=== PATIENT | male | born 1950 | race Caucasian/White ===

== ENCOUNTER → 2016-10-20 | Outpatient (CLI) | payer OTHER | LOC: BHFA 13:00 | PROVIDERS: ATTEND Internal Medicine Cardiovascular Disease | DX: I48.1 Persistent atrial fibrillation (principal) ==

== ENCOUNTER → 2016-10-24 | Day surgery (SDC) | payer OTHER ==
[~2016-10-24] MED LIST: BENZOCAINE UNIT DOSE SPRAY HURRICAINE MM ONE; ETOMIDATE 20 MG/10 ML VIAL IVP ONE; MIDAZOLAM 2 MG/2 ML VIAL IVP ONE; NS 500 ML IV ONE; PROPOFOL 200 MG/20 ML VIAL IVP ONE; PROPOFOL 200 MG/20 ML VIAL ONE; fentaNYL 100 MCG/2 ML INJ IVP ONE
--- NOTE | 2016-10-24 13:50 | CPEKG ---
Heart Rate: 90 RR Interval: 667 QRSD Interval: 88 QT Interval: 392 QTC Interval: 480 QRS [place]: -57 T Wave [place]: 39 EKG Severity - ABNORMAL ECG - EKG Impression: ATRIAL FIBRILLATION, V-RATE 72-118 EKG Impression: CONSIDER INFERIOR INFARCT EKG Impression: BORDERLINE PROLONGED QT INTERVAL Electronically Signed By: Salvador Espinoza 24-Oct-2016 19:47:01
[2016-10-24 14:21] LABS: INR 1.32 (0.83-1.16); PROTIME(PATIENT) 16.4 SEC (12.0-15.0)
[2016-10-24 14:22] LABS: APTT 49.9 SEC (23.0-38.0)
[2016-10-24 14:48] LABS: ANION GAP 10 mEq/L (8-16); CARBON DIOXIDE 26 mEq/l (22-31); CHLORIDE 107 mEq/L (97-110); POTASSIUM 4.4 mEq/L (3.5-5.2); SODIUM 143 mEq/L (134-144)
[2016-10-24 14:49] LABS: CALCIUM 9.5 mg/dL (8.5-10.4); GLOMERULAR FILTRATION RATE > 60; GLUCOSE 82 mg/dL (70-100); MAGNESIUM 2.1 mg/dL (1.6-2.3)
--- NOTE | 2016-10-24 16:11 | CPEKG ---
Heart Rate: 85 RR Interval: 706 P-R Interval: 184 QRSD Interval: 88 QT Interval: 416 QTC Interval: 495 P [place]: 31 QRS [place]: -54 T Wave [place]: 51 EKG Severity - ABNORMAL ECG - EKG Impression: SINUS RHYTHM EKG Impression: ATRIAL PREMATURE COMPLEX EKG Impression: INFERIOR INFARCT, AGE INDETERMINATE EKG Impression: BORDERLINE PROLONGED QT INTERVAL EKG Impression: LEFT AXIS DEVIATION Electronically Signed By: Salvador Espinoza 24-Oct-2016 19:47:43
--- NOTE | 2016-10-25 12:13 | CPR ---
[f rep st] NONINVASIVE CARDIAC PROCEDURE REPORT PROCEDURE PERFORMED: Cardioversion. INDICATION: Atrial fibrillation, anticoagulation with Pradaxa, which was started 1 week ago. ANESTHESIOLOGIST: Dr. Tomás Brooks. DESCRIPTION OF PROCEDURE: Appropriate monitoring was established, and consents were obtained. The p atient was instructed not to stop taking Pradaxa until further instructions from ak. TANNER was done since the Pradaxa was started 1 week ago, and the patient had been in atrial fibrillatio n for 2 weeks prior to the initial visit with me. There was no left atrial, left atrial appendage, o r left ventricular thrombus. A single 100 joule biphasic synchronized DC shock was administered, whi ch converted him to normal sinus rhythm. There were no complications. The patient will be continued on Pradaxa and Rythmol. AV nay blocking agent would also be continued. /[id number]/MODL
--- NOTE | 2016-11-15 08:33 | ECHO ---
[id number] + + [address] : : [facility] [address] : : [phone] + + Transesophageal Echocardiographic Report + -----+ :Name: ALBERTO PAL Date: 10/24/2016 03:27 PM : : Hospital Admission Number: [id number] Location : [facility]: :: 1950 Gender: Male : :Age: 66 yrs Race: WH,White : :Reason For Study: Atrial Fibrillation : + -----+ Atria Injection of contrast documented no interatrial shunt. Mitral Valve Prolapse of the posterior mitral leaflet(s). There is moderate mitral regurgitation. Aortic Valve The aortic valve is trileaflet. There is no aortic insufficiency. Pulmonic Valve Trace pulmonic valvular regurgitation. Conclusion A 2D transesophageal echocardiogram with color flow Doppler was performed. Proceed with cardioversion. Prolapse of the posterior mitral leaflet(s). There is moderate mitral regurgitation. Trace pulmonic valvular regurgitation. Injection of contrast documented no interatrial shunt. Final Reading Physician: Que Reich MD electronically signed on 11/15/2016 08:31 AM Ordering Physician: Que Reich Performed By: Que Reich MD
== END | disposition home or self-care (01) ==
LOC: FCATH 13:13
PROVIDERS: ATTEND Internal Medicine Cardiovascular Disease
PROC: 5A2204Z Restoration of Cardiac Rhythm, Single (ICD-10-PCS; principal; 2016-10-24)
PROC: B246ZZ4 Ultrasonography of Right and Left Heart, Transesophageal (ICD-10-PCS; principal; 2016-10-24)
DX: I48.1 Persistent atrial fibrillation (principal); Z79.01 Long term (current) use of anticoagulants
CPT/HCPCS: J2704

== ENCOUNTER → 2016-11-17 | Outpatient (CLI) | payer OTHER | LOC: BHFA 13:30 | PROVIDERS: ATTEND Internal Medicine Cardiovascular Disease | DX: I48.91 Unspecified atrial fibrillation (principal) | CPT/HCPCS: 78452; 93017; A9500 ==

== ENCOUNTER → 2017-01-30 | Outpatient (CLI) | payer OTHER ==
[~2017-01-30] MED LIST changes: -BENZOCAINE UNIT DOSE SPRAY HURRICAINE MM ONE; -ETOMIDATE 20 MG/10 ML VIAL IVP ONE; +IOPAMIDOL (ISOVUE 370) 100 ML BTL IV ONE; -MIDAZOLAM 2 MG/2 ML VIAL IVP ONE; -NS 500 ML IV ONE; -PROPOFOL 200 MG/20 ML VIAL IVP ONE; -PROPOFOL 200 MG/20 ML VIAL ONE; -fentaNYL 100 MCG/2 ML INJ IVP ONE
[2017-01-30 13:37] LABS: CREATININE 0.9 mg/dL (0.7-1.3); GLOMERULAR FILTRATION RATE > 60
== END ==
LOC: FIMAGING 12:57
PROVIDERS: ATTEND Internal Medicine Cardiovascular Disease
DX: Z01.810 Encounter for preprocedural cardiovascular examination (principal); I48.91 Unspecified atrial fibrillation
CPT/HCPCS: 75572; Q9967

== ENCOUNTER 2017-01-31 07:01 | Observation (INO) | payer OTHER ==
[2017-01-31] MEDS ORDERED: MIDAZOLAM 2 MG/2 ML VIAL IVP ONE (07:06)
[2017-01-31] MEDS ORDERED: NS 1,000 ML IV ONE (07:06)
--- NOTE | 2017-01-31 07:22 | CPEKG ---
Heart Rate: 108 RR Interval: 556 QRSD Interval: 82 QT Interval: 380 QTC Interval: 510 QRS [place]: -66 T Wave [place]: 50 EKG Severity - ABNORMAL ECG - EKG Impression: ATRIAL FIBRILLATION Electronically Signed By: Que Reich 31-Jan-2017 13:16:06
[2017-01-31] MEDS ORDERED: HEPARIN 10,000 UNIT/10 ML MDV ONE ×2 (07:30)
[2017-01-31] MEDS ORDERED: LIDOCAINE 1% 30 ML SDV ONE (07:30)
[2017-01-31] MEDS ORDERED: BUPIVACAINE 0.5% 30 ML SDV ONE (07:30)
[2017-01-31 07:37] LABS: % IMMATURE GRANULYOCYTES 0.2 % (0.0-1.1); ABSOLUTE IMMATURE GRANULOCYTES 0.01 10^3/uL (0.00-0.10); ADD DIFF? NO; ADD MORPH? NO; ADD SCAN? NO; ATYPICAL LYMPHOCYTE FLAG 0 (0-99); FRAGMENT RBC FLAG 0 (0-99); HEMATOCRIT 48.8 % (40.0-51.0); HEMOGLOBIN 16.8 g/dL (13.7-17.5); LEFT SHIFT FLG 0 (0-99); LIPEMIA HEMOLYSIS FLAG 90 (0-99); MEAN CELL HEMOGLOBIN 32.1 pg (27.9-34.1); MEAN CELL HEMOGLOBIN CONCENTR. 34.4 g/dL (32.4-36.7); MEAN CELL VOLUME 93.3 fL (81.5-99.8); MEAN PLATELET VOLUME 11.6 fL (8.7-11.7); PLATELET CLUMPS FLAG 10 (0-99); PLATELET COUNT 251 10^3/uL (150-400); RED BLOOD CELL COUNT 5.23 10^6/uL (4.40-6.38); RED CELL DISTRIBUTION WIDTH 12.7 % (11.5-15.2)
[2017-01-31 07:54] LABS: INR 1.07 (0.83-1.16); PROTIME(PATIENT) 13.8 SEC (12.0-15.0)
[2017-01-31 07:55] LABS: APTT 29.5 SEC (23.0-38.0)
[2017-01-31 08:06] LABS: ANION GAP 9 mEq/L (8-16); CALCIUM 9.6 mg/dL (8.5-10.4); CARBON DIOXIDE 23 mEq/l (22-31); CHLORIDE 109 mEq/L (97-110); CREATININE 0.9 mg/dL (0.7-1.3); GLOMERULAR FILTRATION RATE > 60; GLUCOSE 98 mg/dL (70-100); POTASSIUM 4.1 mEq/L (3.5-5.2); SODIUM 141 mEq/L (134-144)
[2017-01-31] MEDS ORDERED: DEXAMETHASONE 4 MG/ML VIAL ONE (08:21)
[2017-01-31] MEDS ORDERED: ROCURONIUM 50 MG/5 ML VIAL ONE ×3 (08:21→11:46)
[2017-01-31] MEDS ORDERED: PROPOFOL 200 MG/20 ML VIAL ONE (08:22)
[2017-01-31] MEDS ORDERED: SEVOFLURANE 250 ML BOTTLE IH ONE (08:28)
[2017-01-31] MEDS ORDERED: DESFLURANE 240 ML BOTTLE IH ONE (08:28)
[2017-01-31] MEDS ORDERED: PHENYLEPHRINE 10 MG/ML SDV ONE (08:53)
[2017-01-31] MEDS ORDERED: HEPARIN/DEXTROSE 25,000 UNIT/500 ML BAG ONE (09:06)
[2017-01-31] MEDS ORDERED: IOPAMIDOL (ISOVUE-300) 100 ML BTL IV ONE (09:29)
[2017-01-31] MEDS ORDERED: ONDANSETRON 4 MG/2 ML VIAL ONE ×2 (11:51→12:48)
[2017-01-31] MEDS ORDERED: PROTAMINE SULFATE 50 MG/5 ML VIAL IVP ONE (11:53)
[2017-01-31] MEDS ORDERED: SUGAMMADEX SODIUM 200 MG/2 ML VIAL IVP ONE (12:06)
--- NOTE | 2017-01-31 13:27 | EPPROC ---
Electrophysiology Procedure Note: ELECTROPHYSIOLOGIC STUDY AND CATHETER MEDIATED ABLATION FOR EARLY PERSISTENT ATRIAL FIBRILLATION Procedures performed: 62135-61 EP evaluation with RA/RV/LA pace/record, with arrhythmia induction 30604-60 EP evaluation with RA/RV pace record, insert/reposition catheter, with arrhythmia induction 16050 Atrial fibrillation ablation 77922 3D mapping Intracardiac echocardiogram Transseptal puncture Fluoroscopy INDICATION: Early persistent atrial fibrillation Cryo balloon ablation at our institution in 2013 with elimination of symptoms but recent recurrence of atrial fibrillation that has failed medical therapy with Rythmol SR and diltiazem. PROCEDURE: The patient arrived in the Electrophysiology Laboratory in the fasting state. The right groin, left groin and right infraclavicular area were prepped and draped in the usual sterile fashion. Anesthesiologist administered general anesthesia Dr. Jesus Fuentes. All catheters were placed percutaneously using the Seldinger technique and advanced into position under fluoroscopic guidance. One #7 Nigerian deflectable octapolar electrode catheter was placed in the His-bundle position via the left femoral vein (2mm spacing, IVC electrode for unipolar recordings). This catheter was placed in the coronary sinus after transseptal puncture. One #8 Nigerian AcuNaV ultrasound catheter was placed in the left femoral vein and advanced into the right atrium. One #4 Nigerian sheath was inserted into the left femoral artery via percutaneous technique and used for continuous arterial blood pressure monitoring and intermittent ACT determination. Programmed stimulation was performed from the right atrium, left atrium (CS) and right ventricle. Intracardiac echo evaluation of the left atrium and pulmonary veins was performed. Baseline ACT was drawn and heparin bolus was administered and heparin drip was started prior to transseptal puncture. ACT was checked every 15 minutes and maintained in the range of 350-400 seconds. One SL1 sheath (8.5 Fr) was inserted into the right femoral vein and advanced into the right atrium. Transseptal puncture was performed under intracardiac ultrasound, fluoroscopic and hemodynamic guidance placing the sheath into the left atrium. Mcdermott RF needle (C0 curve) was used. The mean left atrial pressure was 18 mmHg. At baseline, the rhythm was atrial fibrillation. Cardioversion was performed. Conventional pulmonary vein angiography was done using SL1 sheaths. PV anatomy : Left common pulmonic vein, RSPV, and RIPV. A high-resolution electroanatomical map of the left atrium and pulmonary veins was obtained during atrial fibrillation. CT angiography of the pulmonary veins and left atrium obtained previously was used in the CARTO-MERGE system for guidance in placing the catheter. Intracardiac ultrasound was used to assist in placing the mapping catheter outside the antrum of the pulmonary veins. Pentaray catheter was placed into sheath and advanced into the left atrium. High-density electroanatomical map of the left atrium was constructed including bipolar voltage map. This showed some areas of conduction just inferior to the left common pulmonic vein and inferior to the right inferior pulmonic vein and at the rain of the right superior and right inferior pulmonic veins. One #8 Nigerian quadrapolar electrode catheter (1mm-5mm-2mm spacing) with saline irrigated 3.5mm tip electrode ([employer] Thermo-Cool catheter) and location sensor for the Walkbase 3D mapping system was inserted through the transseptal sheath and positioned outside the orifice of the left superior pulmonary vein. Ablation was performed in these locations. Repeat high- density electroanatomical mapping confirmed that these areas were scarred and all 4 pulmonary veins were confirmed to be isolated. An esophageal temperature probe (12 electrode, Circa) was placed by the anesthesiologist at the beginning of the procedure. Esophageal temperature was monitored continuously and RF ablation was interrupted if there was a temperature rise >0.5 C. The esophagus was closer to the left common pulmonic vein. Sheath was withdrawn into the right atrium. Halo catheter was placed along the cavotricuspid isthmus and the lateral right atrium. Originally intention was to place a cavotricuspid isthmus line empirically given that this was the patient's 2nd ablation. However due to technical difficulties with CARTO mapping system, we did not perform atrial flutter ablation. ICE imaging was consistent with pre ablation imaging; moreover it showed no pericardial effusion or LA/TONJA thrombus at the end of the procedure. The catheters were withdrawn. SL1 sheaths were changed to 9 Fr short sheaths. Protamine was given. The sheaths were removed and manual pressure was used for hemostasis. The patient was recovered from anesthesia. There were no complications. CONCLUSIONS: 1. Early persistent atrial fibrillation. 2. Successful pulmonary vein re-isolation procedure (left and right pulmonary vein antrum) 3. No apparent complications. Patient Problems: Problems Problem Status Onset Atrial fibrillation Acute
[2017-01-31] MEDS ORDERED: ACETAMINOPHEN 325 MG TAB PO PRN (20:39)
[2017-01-31] MEDS ORDERED: OXYCODONE/APAP 5/325 TAB PO PRN (20:39)
[2017-01-31] MEDS ORDERED: ONDANSETRON 4 MG/2 ML VIAL IVP PRN (20:39)
[2017-01-31] MEDS: ENOXAPARIN 80 MG/0.8 ML SYR SC SCH (21:00)
--- NOTE | 2017-01-31 21:47 | CPEKG ---
Heart Rate: 79 RR Interval: 759 P-R Interval: 180 QRSD Interval: 82 QT Interval: 408 QTC Interval: 468 P [place]: 42 QRS [place]: -58 T Wave [place]: 44 EKG Severity - ABNORMAL ECG - EKG Impression: SINUS RHYTHM Electronically Signed By: Que Reich 01-Feb-2017 07:17:40
[2017-01-31 22:04] LABS: ANION GAP 7 mEq/L (8-16); CALCIUM 8.6 mg/dL (8.5-10.4); CARBON DIOXIDE 25 mEq/l (22-31); CHLORIDE 107 mEq/L (97-110); CREATININE 0.8 mg/dL (0.7-1.3); GLOMERULAR FILTRATION RATE > 60; GLUCOSE 100 mg/dL (70-100); MAGNESIUM 1.7 mg/dL (1.6-2.3); POTASSIUM 4.2 mEq/L (3.5-5.2); SODIUM 139 mEq/L (134-144)
[2017-02-01 05:21] VITALS: TEMP 97.5
[2017-02-01 05:34] LABS: % IMMATURE GRANULYOCYTES 0.4 % (0.0-1.1); ABSOLUTE IMMATURE GRANULOCYTES 0.06 10^3/uL (0.00-0.10); ADD DIFF? NO; ADD MORPH? NO; ADD SCAN? NO; ATYPICAL LYMPHOCYTE FLAG 0 (0-99); FRAGMENT RBC FLAG 0 (0-99); HEMATOCRIT 40.6 % (40.0-51.0); HEMOGLOBIN 13.9 g/dL (13.7-17.5); LEFT SHIFT FLG 0 (0-99); LIPEMIA HEMOLYSIS FLAG 90 (0-99); MEAN CELL HEMOGLOBIN 31.9 pg (27.9-34.1); MEAN CELL HEMOGLOBIN CONCENTR. 34.2 g/dL (32.4-36.7); MEAN CELL VOLUME 93.1 fL (81.5-99.8); MEAN PLATELET VOLUME 11.7 fL (8.7-11.7); PLATELET CLUMPS FLAG 0 (0-99); PLATELET COUNT 215 10^3/uL (150-400); RED BLOOD CELL COUNT 4.36 10^6/uL (4.40-6.38); RED CELL DISTRIBUTION WIDTH 12.4 % (11.5-15.2)
[2017-02-01 05:58] LABS: ANION GAP 8 mEq/L (8-16); CALCIUM 8.8 mg/dL (8.5-10.4); CARBON DIOXIDE 25 mEq/l (22-31); CHLORIDE 107 mEq/L (97-110); CREATININE 0.8 mg/dL (0.7-1.3); GLOMERULAR FILTRATION RATE > 60; GLUCOSE 90 mg/dL (70-100); POTASSIUM 3.7 mEq/L (3.5-5.2); SODIUM 140 mEq/L (134-144)
[2017-02-01 06:06] LABS: CK-MB INTERPRETATION POSITIVE (NEGATIVE)
[2017-02-01 06:25] LABS: INR 1.3 (0.83-1.16); PROTIME(PATIENT) 16.2 SEC (12.0-15.0)
--- NOTE | 2017-02-01 08:48 | CPEKG ---
Heart Rate: 81 RR Interval: 741 P-R Interval: 164 QRSD Interval: 86 QT Interval: 404 QTC Interval: 469 P [place]: 62 QRS [place]: -65 T Wave [place]: 40 EKG Severity - ABNORMAL ECG - EKG Impression: SINUS RHYTHM Electronically Signed By: Que Reich 01-Feb-2017 11:54:34
[2017-02-01] MEDS ORDERED: PANTOPRAZOLE SODIUM 40 MG TAB PO SCH (09:00)
[2017-02-01] MEDS ORDERED: ATORVASTATIN CALCIUM 10 MG TAB PO SCH (09:00)
[2017-02-01] MEDS ORDERED: DILTIAZEM CD 180 MG CAP PO SCH (09:00)
[2017-02-01] MEDS ORDERED: AMIODARONE HCL 200 MG TAB PO SCH (09:00)
--- NOTE | 2017-02-01 09:36 | ECHO ---
[id number] + + [address] : : [facility] [address] : : [phone] + + Transesophageal Echocardiographic Report + + :Name: ALBERTO PAL Study Date: 01/31/2017 08:42 AM : : Hospital Admission Number: [id number] : :: 1950 Gender: Male : :Age: 66 yrs Race: WH,White : :Reason For Study: Eval LV Fx : :History: Pre EP : + + Left Ventricle Ejection Fraction = 55-60%. Right Ventricle The right ventricle is normal in size and function. Atria Injection of contrast documented no interatrial shunt. The interatrial septum is intact with no evidence for an atrial septal defect. No thrombus is detected in the left atrial appendage. No left atrial mass or thrombus visualized. A prominent eustachian valve is noted. Mitral Valve The mitral valve is normal in structure and function. There is no mitral valve stenosis. There is trace to mild mitral regurgitation. Tricuspid Valve There is trace tricuspid regurgitation. Right ventricular systolic pressure is normal. Aortic Valve The aortic valve is normal in structure and function. The aortic valve is trileaflet. The aortic valve opens well. There is no aortic stenosis. There is no aortic insufficiency. Pulmonic Valve The pulmonic valve is normal in structure and function. There is no pulmonic valvular regurgitation. Vessels The aortic root is normal size. Pericardium There is no pericardial effusion. Conclusion A 2D transesophageal echocardiogram with color flow Doppler was performed. Ejection Fraction = 55-60%. Injection of contrast documented no interatrial shunt. The interatrial septum is intact with no evidence for an atrial septal defect. No thrombus is detected in the left atrial appendage. No left atrial mass or thrombus visualized. A prominent eustachian valve is noted. There is trace to mild mitral regurgitation. There is trace tricuspid regurgitation. Right ventricular systolic pressure is normal. The aortic valve is normal in structure and function. The aortic valve is trileaflet. Final Reading Physician: Que Reich MD electronically signed on 02/01/2017 09:34 AM Ordering Physician: Que Reich Performed By: Que Reich MD
--- NOTE | 2017-02-01 09:38 | ECHO ---
[id number] [id number] + + [address] : : [place] [address] : : [phone] + + Adult Echocardiographic Report + + :Name: ALBERTO PAL Aline Date: 02/01/2017 08:01 AM : : Hospital Admission Number: [id number] : :: 1950 Gender: Male Height: 70 in : :Age: 66 yrs Race: WH,White Weight: 175 lb : : : : BSA: 2.0 meters2: + + MMode/2D Measurements \T\ Calculations IVSd: 0.95 cm LVIDd: 4.8 cm FS: 35.5 % Ao root diam: 3.3 cm LVPWd: 1.0 cm LVIDs: 3.1 cm EDV(Teich): 106.9 ml ACS: 1.6 cm ESV(Teich): 37.5 ml EF(Teich): 64.9 % LVOT diam: 2.1 cm LVOT area: 3.5 cm2 Normal Measurement Values: + + :LVIDd (3.5-5.7cm) IVSd (0.6-1.1cm) LVPWd (0.6-1.1cm) Aortic Root (2.0-3.7cm)Left Atrium (1.5-4.0cm): :LV Vol(d) (76-115ml) LV Vol(s) (29-48ml) Ejec Fraction (50-65%)PV Jason (0.6- 1.2m/s) TV Jason (0.4-1.0m/s) : :MV E Jason (0.8-1.0m/s)MV A Jason (0.3-1.0m/s)LVOT Jason (0.7-1.2m/s) Asc Ao Jason ( 0.9-1.8m/s) : + + Doppler Measurements \T\ Calculations MV E max jason: Ao mean P.3 mmHgLV V1 mean PG: SV(LVOT): 76.5 cm/sec Ao V2 mean: 1.1 mmHg 63.7 ml MV A max jason: 86.9 cm/sec LV V1 mean: 46.9 cm/sec Ao V2 VTI: 26.6 cm 45.4 cm/sec MV E/A: 1.6 LV V1 VTI: 18.4 cm HAYLEE(I,D): 2.4 cm2 PA V2 max: 86.9 cm/sec PA max P.0 mmHg Left Ventricle The left ventricle is normal in size and function. There is no thrombus. Ejection Fraction = 55%. Right Ventricle The right ventricle is normal in size and function. Mitral Valve The mitral valve is normal in structure and function. There is trace to mild mitral regurgitation. Tricuspid Valve Normal tricuspid valve. No tricuspid regurgitation. Aortic Valve Mild Aortic Valve Calcification. There is no aortic stenosis. Pulmonic Valve The pulmonic valve is not well visualized. Pericardium/Pleural There is no pericardial effusion. Conclusion The left ventricle is normal in size and function. Ejection Fraction = 55%. There is trace to mild mitral regurgitation. Final Reading Physician: Que Reich MD electronically signed on 02/01/2017 09:37 AM Ordering Physician: Que Reich
[2017-02-01 09:59] VITALS: BP 152/74; PULSE 82; RESP 20; O2SAT 95
[2017-02-01] MEDS ORDERED: APIXABAN 5 MG TAB PO SCH (10:00)
[2017-02-01] MEDS: ENOXAPARIN 80 MG/0.8 ML SYR SC SCH (10:55)
--- NOTE | 2017-02-01 21:50 | GDS ---
[f rep st] DISCHARGE SUMMARY ADMITTING DIAGNOSIS: 1. Paroxysmal atrial fibrillation. 2. History of nonischemic cardiomyopathy. 3. Severe central sleep apnea. DISCHARGE DIAGNOSES: 1. Paroxysmal atrial fibrillation, status post radiofrequency ablation. 2. History of nonischemic cardiomyopathy. 3. Severe sleep apnea. BRIEF HISTORY: This is a 66-year-old man with prior atrial fibrillation ablation in November 2013. He had experienced recent breakthroughs despite Rythmol therapy. Symptoms include shortness of breath, palpitations, decreased exercise tolerance. Previously his EF had decreased; currently, it is 55%. CT done on 01/30/2017 prior to ablation demonstrated mild cardiomyopathy, coronary calcification, and a 2.5 x 2 cm hypodense lesion in the right lobe of his liver , which has increased in size since last CT in 2013. Nuclear stress test 2016 was negative, and his EF was 51%. HOSPITAL COURSE: The patient underwent atrial fibrillation ablation using radiofrequency ablation with successful pulmonary reisolation procedure of the left and right pulmonary vein antra. Due to technical difficulties with the Carto mapping system, atrial flutter ablation was not done. This was to have been done empirically because it was the patient's second ablation, although no atrial flutter had been seen clinically. The patient was stable overnight. He did have a brief run of atrial tachycardia on telemetry. He has not had any chest pain, shortness of breath, pain in his legs, or neurological symptoms. PHYSICAL EXAMINATION: VITAL SIGNS: Blood pressure 127/74, pulse 76, respirations 16, temperature 36.4. GENERAL: He is alert and oriented in no distress. CARDIAC: Regular rate and rhythm without murmur, rub, or gallop. LUNGS: Clear to auscultation. EXTREMITIES: Groin site without bleeding, swelling, or bruising. +1 femoral artery pulses, +2 pedal pulses. No discoloration or edema in the extremities. DATA REVIEWED: EKG demonstrates sinus rhythm without ST elevation. Echocardiogram demonstrated ejection fraction of 55% without effusion. LABORATORY VALUES: Sodium 140, potassium 3.7, chloride 107, bicarb 25, BUN 19, creatinine 0.8, glucose 90. WBC 14.1, hemoglobin 4.36, hematocrit 13.9, platelets 215,000. CK 294, CK-MB fraction 22, CK-MB percent 7.5, troponin 4.410 ; all of these cardiac enzymes are elevated, which is to be expected post atrial fibrillation ablation. DISCHARGE MEDICATIONS: Please see discharge medication reconiliation . Of note , Rythmol and Cardizem were stopped, and amiodarone 200 mg daily was started. This will be continued for at least 1 month. DISCHARGE INSTRUCTIONS: The patient was given instructions with activity restrictions, no lifting over 10 pounds for 10 days. He is to get up and walk every half hour while he is awake for the next 6 weeks. 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 FOLLOWUP: He has a followup with Dr. Reich on February 15 at 3:45. /[id number]/MODL MTDD
== END 2017-02-01 10:44 | disposition home or self-care (01) ==
LOC: FCATH 07:01 → F2N 12:32
PROVIDERS: ADMIT Internal Medicine Cardiovascular Disease; ATTEND Internal Medicine Cardiovascular Disease
DX: I48.0 Paroxysmal atrial fibrillation (principal); G47.31 Primary central sleep apnea
CPT/HCPCS: 93005; 93306; 93312; 93613; 93656; 93662; C1731; C1732; C1759; C1893; J1100; J1644; J1650; J2250; J2370; J2405; J2704; J2720; Q9967

== ENCOUNTER → 2017-02-08 | Outpatient (CLI) | payer OTHER | LOC: BMCIMAGING 07:18 | PROVIDERS: ATTEND Internal Medicine | DX: K76.89 Other specified diseases of liver (principal); K82.4 Cholesterolosis of gallbladder ==

== ENCOUNTER → 2017-02-15 | Outpatient (CLI) | payer OTHER | LOC: BHFA 15:45 | PROVIDERS: ATTEND Internal Medicine Cardiovascular Disease | DX: I48.91 Unspecified atrial fibrillation (principal) ==

== ENCOUNTER → 2017-03-03 | Outpatient (CLI) | payer OTHER | LOC: BHFA 09:00 | PROVIDERS: ATTEND Internal Medicine Cardiovascular Disease | DX: I48.91 Unspecified atrial fibrillation (principal) ==

== ENCOUNTER → 2017-04-18 | Outpatient (CLI) | payer OTHER | LOC: BHFA 13:30 | PROVIDERS: ATTEND Internal Medicine Cardiovascular Disease | DX: I48.91 Unspecified atrial fibrillation (principal) ==

== ENCOUNTER 2017-04-21 09:26 | Day surgery (SDC) | payer OTHER ==
[2017-04-21] MEDS ORDERED: NS 500 ML IV ONE (09:30)
[2017-04-21] MEDS ORDERED: fentaNYL 100 MCG/2 ML INJ IVP ONE (09:30)
[2017-04-21] MEDS ORDERED: MIDAZOLAM 2 MG/2 ML VIAL IVP ONE (09:30)
[2017-04-21] MEDS ORDERED: PROPOFOL 200 MG/20 ML VIAL IVP ONE (09:30)
--- NOTE | 2017-04-21 09:42 | CPEKG ---
Heart Rate: 76 RR Interval: 789 QRSD Interval: 86 QT Interval: 404 QTC Interval: 455 QRS [place]: -54 T Wave [place]: 28 EKG Severity - ABNORMAL ECG - EKG Impression: ATRIAL FIBRILLATION, V-RATE 72-80 EKG Impression: INFERIOR INFARCT, AGE INDETERMINATE EKG Impression: ATRIAL FIB IS NEW IN COMPARISON TO PRIOR Electronically Signed By: Hang Renner 21-Apr-2017 14:08:28
[2017-04-21 10:10] LABS: INR 1.16 (0.83-1.16); PROTIME(PATIENT) 14.8 SEC (12.0-15.0)
[2017-04-21 10:11] LABS: APTT 33.6 SEC (23.0-38.0)
[2017-04-21 10:22] LABS: ANION GAP 11 mEq/L (8-16); CALCIUM 9.3 mg/dL (8.5-10.4); CARBON DIOXIDE 20 mEq/l (22-31); CHLORIDE 113 mEq/L (97-110); CREATININE 0.9 mg/dL (0.7-1.3); GLOMERULAR FILTRATION RATE > 60; GLUCOSE 87 mg/dL (70-100); MAGNESIUM 2.1 mg/dL (1.6-2.3); POTASSIUM 4.6 mEq/L (3.5-5.2); SODIUM 144 mEq/L (134-144)
--- NOTE | 2017-04-21 10:25 | CPEKG ---
Heart Rate: 75 RR Interval: 800 P-R Interval: 176 QRSD Interval: 90 QT Interval: 436 QTC Interval: 487 P [place]: -20 QRS [place]: -48 T Wave [place]: 23 EKG Severity - ABNORMAL ECG - EKG Impression: SINUS RHYTHM EKG Impression: VENTRICULAR PREMATURE COMPLEX EKG Impression: INFERIOR INFARCT, AGE INDETERMINATE EKG Impression: BORDERLINE PROLONGED QT INTERVAL EKG Impression: SINUS RHYTHM HAS REPLACED AFIB Electronically Signed By: Hang Renner 21-Apr-2017 14:09:03
--- NOTE | 2017-04-21 13:33 | PDTEE1 ---
TANNER Cardioversion Procedure Procedure: Electrical Cardioversion Indications: Atrial Fibrillation Anticoagulation: Eliquis Procedural Details: Pads were placed in anterior-posterior position. Synchronized cardioversion attempt #1: 200J Results: Normal sinus rhythm Conclusions: Successful Cardioversion Patient Problems: Problems Problem Status Onset Atrial fibrillation Acute
== END 2017-04-21 11:54 | disposition home or self-care (01) ==
LOC: FCATH 09:26
PROVIDERS: ATTEND Internal Medicine Interventional Cardiology
PROC: 5A2204Z Restoration of Cardiac Rhythm, Single (ICD-10-PCS; principal; 2017-04-21)
DX: I48.91 Unspecified atrial fibrillation (principal); I25.10 Atherosclerotic heart disease of native coronary artery without angina pectoris; G47.33 Obstructive sleep apnea (adult) (pediatric); Z79.01 Long term (current) use of anticoagulants
CPT/HCPCS: J2704

== ENCOUNTER → 2017-05-05 | Outpatient (CLI) | payer OTHER | LOC: BHFA 09:00 | PROVIDERS: ATTEND Internal Medicine Cardiovascular Disease | DX: I48.91 Unspecified atrial fibrillation (principal) ==

== ENCOUNTER → 2017-05-18 | Outpatient (CLI) | payer OTHER | LOC: BHFA 09:30 | PROVIDERS: ATTEND Internal Medicine Cardiovascular Disease | DX: I48.91 Unspecified atrial fibrillation (principal) ==

== ENCOUNTER 2017-05-24 10:28 | Day surgery (SDC) | payer OTHER ==
[2017-05-24] MEDS ORDERED: PROPOFOL 200 MG/20 ML VIAL IVP ONE (10:33)
[2017-05-24] MEDS ORDERED: MIDAZOLAM 2 MG/2 ML VIAL IVP ONE (10:33)
[2017-05-24] MEDS ORDERED: BENZOCAINE UNIT DOSE SPRAY HURRICAINE MM ONE (10:33)
[2017-05-24] MEDS ORDERED: NS 500 ML IV ONE (10:33)
[2017-05-24] MEDS ORDERED: fentaNYL 100 MCG/2 ML INJ IVP ONE (10:33)
--- NOTE | 2017-05-24 10:45 | CPEKG ---
Heart Rate: 90 RR Interval: 667 P-R Interval: 232 QRSD Interval: 88 QT Interval: 344 QTC Interval: 421 P [place]: 66 QRS [place]: -50 T Wave [place]: 187 EKG Severity - ABNORMAL ECG - EKG Impression: Coarse atrial fibrillation vs left AT EKG Impression: LEFT AXIS DEVIATION EKG Impression: BORDERLINE INFERIOR Q WAVES Electronically Signed By: Que Reich 24-May-2017 10:59:39
[2017-05-24 11:06] LABS: INR 1.42 (0.83-1.16); PROTIME(PATIENT) 17.3 SEC (12.0-15.0)
[2017-05-24 11:07] LABS: APTT 36.8 SEC (23.0-38.0)
[2017-05-24 11:15] LABS: ANION GAP 11 mEq/L (8-16); CALCIUM 9.3 mg/dL (8.5-10.4); CARBON DIOXIDE 22 mEq/l (22-31); CHLORIDE 110 mEq/L (97-110); GLOMERULAR FILTRATION RATE > 60; GLUCOSE 91 mg/dL (70-100); POTASSIUM 4.2 mEq/L (3.5-5.2); SODIUM 143 mEq/L (134-144)
[2017-05-24] MEDS ORDERED: LIDOCAINE 1% 5 ML SDV ONE (11:54)
--- NOTE | 2017-05-24 12:19 | CPEKG ---
Heart Rate: 71 RR Interval: 845 P-R Interval: 196 QRSD Interval: 98 QT Interval: 444 QTC Interval: 483 P [place]: 42 QRS [place]: -51 T Wave [place]: 48 EKG Severity - ABNORMAL ECG - EKG Impression: SINUS RHYTHM EKG Impression: MULTIPLE ATRIAL PREMATURE COMPLEXES EKG Impression: INFERIOR INFARCT, AGE INDETERMINATE EKG Impression: BORDERLINE PROLONGED QT INTERVAL EKG Impression: Compared to an EKG earlier today the patient is no longer in a left atrial EKG Impression: tachycardia. Electronically Signed By: Salvador Espinoza 24-May-2017 15:18:07
--- NOTE | 2017-05-24 14:12 | CPIP ---
[f rep st] INVASIVE CARDIAC PROCEDURE PROCEDURE: Cardioversion. INDICATION: Atrial fibrillation. ANESTHESIA: Anesthesiology administered IV general anesthesia. PROCEDURE IN DETAIL: After all appropriate monitoring was established in the CVC. Informed consent was signed previously. TANNER was done because the patient missed a single dose of Eliquis about 4 da ys ago. There was no left atrial or left atrial appendage thrombus. Of note, there was moderate mi tral regurgitation. A single 200-joule synchronized biphasic direct current shock was delivered, which converted him to sinus rhythm. There were no complications. /[id number]/MODL
== END 2017-05-24 13:40 | disposition home or self-care (01) ==
LOC: FCATH 10:28
PROVIDERS: ATTEND Internal Medicine Cardiovascular Disease
PROC: B245ZZ4 Ultrasonography of Left Heart, Transesophageal (ICD-10-PCS; principal; 2017-05-24)
PROC: 5A2204Z Restoration of Cardiac Rhythm, Single (ICD-10-PCS; principal; 2017-05-24)
DX: I48.1 Persistent atrial fibrillation (principal); I34.0 Nonrheumatic mitral (valve) insufficiency; G47.33 Obstructive sleep apnea (adult) (pediatric); N40.1 Benign prostatic hyperplasia with lower urinary tract symptoms; E78.5 Hyperlipidemia, unspecified; Z87.891 Personal history of nicotine dependence; Z82.49 Family history of ischemic heart disease and other diseases of the circulatory system; Z79.01 Long term (current) use of anticoagulants
CPT/HCPCS: J2704

== ENCOUNTER → 2017-08-04 | Outpatient (CLI) | payer OTHER | LOC: BHFA 09:00 | PROVIDERS: ATTEND Internal Medicine Cardiovascular Disease | DX: I48.91 Unspecified atrial fibrillation (principal) ==

== ENCOUNTER 2017-08-30 11:25 | Day surgery (SDC) | payer OTHER ==
[~2017-08-30 11:25] MED LIST changes: +BENZOCAINE UNIT DOSE SPRAY HURRICAINE MM ONE; -IOPAMIDOL (ISOVUE 370) 100 ML BTL IV ONE; +MIDAZOLAM 2 MG/2 ML VIAL IVP ONE; +NS 500 ML IV ONE; +fentaNYL 100 MCG/2 ML INJ IVP ONE
--- NOTE | 2017-08-30 12:06 | PDANEPAE ---
ANE History of Present Illness a fib ANE Past Medical History - Cardiovascular History Hx Arrhythmias: Yes - Pulmonary History Hx Sleep Apnea: Yes - GI History Hx Gastrointestinal Disorders: Yes ANE Review of Systems Review of Systems: ANE Patient History - Allergies Allergies/Adverse Reactions: No Known Allergies Allergy (Unverified 06/27/13 06:39) - Home Medications Home Medications: Atorvastatin Calcium [Lipitor 10 mg (*)] 10 mg PO DAILY 01/31/17 [Last Taken 08:00] Cardizem 05/24/17 [Last Taken 08/30/17 08:00] Fish Oil/Dha/Epa 05/24/17 [Last Taken 08/29/17 08:00] Propafenone HCl Sr [Rythmol Sr 325mg (*)] 325 mg PO Q12 05/24/17 [Last Taken 22:00] Vitamin B12 05/24/17 [Last Taken 08/29/17 08:00] Vitamin C 05/24/17 [Last Taken 08/29/17 08:00] - NPO status NPO Status: no food or drink >8 hours - Smoking Hx Smoking Status: Former smoker ANE Labs/Vital Signs - Vital Signs Height: 180.34 cm Weight: 78.018 kg ANE Physical Exam - Airway Neck exam: FROM Mallampati Score: Class 1 Mouth exam: normal dental/mouth exam - Pulmonary Pulmonary: no respiratory distress - Cardiovascular Cardiovascular: regular rate and rhythym - ASA Status ASA Status: II ANE Anesthesia Plan Total IV Anesthesia: Yes
[2017-08-30] MEDS ORDERED: PROPOFOL 200 MG/20 ML VIAL ONE ×3 (12:07→12:27)
[2017-08-30] MEDS ORDERED: NALOXONE HCL 0.4 MG/ML INJ IVP PRN (12:42)
--- NOTE | 2017-08-30 12:42 | POSTANESTH ---
Post Anesthetic Evaluation Cardiovascular Status: Normal, Stable Respiratory Status: Normal, Stable Level of Consciousness/Mental Status: Can Participate in Eval Pain Control: Adequate, Prn Tx Ordered Nausea/Vomiting Control: Adequate, Prn Tx Ordered Complications Possibly Related to Anesthesia: None Noted
--- NOTE | 2017-09-05 11:04 | ECHO ---
[email or web address] [address] [address] Main: [phone] Fax: Transesophageal Echocardiography Name: ALBERTO PAL MR#: [id number] Study Date: 08/30/2017 Study Time: 11:53 AM Date of : 1950 Age: 66 year(s) Height: ( ) Weight: ( ) BSA: Gender: Male Examination: TANNER Indication: evaluate MR Image Quality: Adequate Contrast: I.V. dose of agitated saline Requested by: Que Reich Heart Rate: Rhythm: Atrial fibrillation BP: 150 mmHg/102 mmHg Procedure Staff Personal Shopper: Ann Bergeron Reading Physician: Que Reich Requesting Provider: TANNER Exam Details Contrast: I.V. dose of agitated saline Conclusions: Normal global systolic LV function. The mitral valve leaflets appear redundant. There is bileaflet mitral valve prolapse. Moderate to severe mitral regurgitation. ERO measured between 30-40mm and regurgitant volume 31-68ml. There were 2 mitral regurgitant jets . Study reviewed by Dr. Reich and Dr. Hilliard Measurements: Chambers Valvular Assessment AV/MV Valvular Assessment TV/PV Normal Normal Normal Name Value Range Name Value Range Name Value Range Additional Measurements: Chambers Valvular Assessment AV/MV Name Value Name Value LADs Lon.8 cm MR Vena Contracta: 0.5 cm LA Area: 21.9 cm2 MR ERO: 0.300 cm2 LA Volume: 65 ml MR PISA radius: 6 mm MR Reg. Volume: 50 ml Patient: ALBERTO PAL Study Date: 08/30/2017 Page 1 of 2 11:53 AM Findings: Left Ventricle: Normal global systolic LV function. Left Atrium: An agitated saline study was performed and was negative for intracardiac shunting. Left Atrial Appendage: No tumor in left atrial appendage. Mitral Valve: The mitral valve leaflets appear redundant. There is bileaflet mitral valve prolapse. The cause of the mitral valve regurgitation is prolapse. Moderate to severe mitral regurgitation. ERO measured between 30-40mm and regurgitant volume 31-68ml. Tricuspid Valve: The tricuspid valve appears normal. Trivial tricuspid valve regurgitation. Pulmonary artery pressure is not obtained due to inadequate TR jet. l1n (No Signature Object) Patient: ALBERTO PAL Study Date: 08/30/2017 Page 2 of 2 11:53 AM [id number]
== END 2017-08-30 14:09 | disposition home or self-care (01) ==
LOC: FCATH 11:25
PROVIDERS: ATTEND Internal Medicine Cardiovascular Disease
PROC: B246ZZ4 Ultrasonography of Right and Left Heart, Transesophageal (ICD-10-PCS; principal; 2017-08-30)
DX: I34.0 Nonrheumatic mitral (valve) insufficiency (principal); I48.0 Paroxysmal atrial fibrillation; G47.33 Obstructive sleep apnea (adult) (pediatric); E78.00 Pure hypercholesterolemia, unspecified; N40.1 Benign prostatic hyperplasia with lower urinary tract symptoms; R31.9 Hematuria, unspecified
CPT/HCPCS: J2704

== ENCOUNTER 2017-09-19 13:06 | Day surgery (SDC) | payer OTHER ==
[2017-09-19] MEDS ORDERED: ASPIRIN EC 325 MG TAB PO ONE (13:10)
[2017-09-19] MEDS ORDERED: FAMOTIDINE 20 MG TAB PO ONE (13:10)
[2017-09-19] MEDS ORDERED: DIAZEPAM 5 MG TAB PO ONE (13:10)
[2017-09-19] MEDS ORDERED: diphenhydrAMINE 25 MG CAP PO ONE (13:10)
[2017-09-19] MEDS ORDERED: NS 1,000 ML IV ONE (13:10)
--- NOTE | 2017-09-19 13:37 | CPEKG ---
Heart Rate: 101 RR Interval: 594 QRSD Interval: 88 QT Interval: 380 QTC Interval: 493 QRS [place]: -64 T Wave [place]: 48 EKG Severity - ABNORMAL ECG - EKG Impression: ATRIAL FIBRILLATION, V-RATE 79-120 EKG Impression: VENTRICULAR PREMATURE COMPLEX EKG Impression: LEFT AXIS DEVIATION EKG Impression: BORDERLINE INFERIOR Q WAVES EKG Impression: BORDERLINE PROLONGED QT INTERVAL EKG Impression: COMPARED WITH 05/24/2017 AT 12:17 P.M. ATRIAL FIBRILLATION AND PVC NOW PRESENT. Electronically Signed By: Yanelis Hilliard 19-Sep-2017 18:44:00
[2017-09-19 13:55] LABS: % IMMATURE GRANULYOCYTES 0.1 % (0.0-1.1); ABSOLUTE IMMATURE GRANULOCYTES 0.01 10^3/uL (0.00-0.10); ADD DIFF? NO; ADD MORPH? NO; ADD SCAN? NO; ATYPICAL LYMPHOCYTE FLAG 0 (0-99); FRAGMENT RBC FLAG 0 (0-99); HEMATOCRIT 48.8 % (40.0-51.0); HEMOGLOBIN 17.4 g/dL (13.7-17.5); LEFT SHIFT FLG 0 (0-99); LIPEMIA HEMOLYSIS FLAG 90 (0-99); MEAN CELL HEMOGLOBIN 32.8 pg (27.9-34.1); MEAN CELL HEMOGLOBIN CONCENTR. 35.7 g/dL (32.4-36.7); MEAN CELL VOLUME 92.1 fL (81.5-99.8); MEAN PLATELET VOLUME 11.5 fL (8.7-11.7); PLATELET CLUMPS FLAG 0 (0-99); PLATELET COUNT 249 10^3/uL (150-400); RED CELL DISTRIBUTION WIDTH 12.4 % (11.5-15.2)
[2017-09-19 14:07] LABS: INR 1.14 (0.83-1.16); PROTIME(PATIENT) 14.8 SEC (12.0-15.0)
[2017-09-19] MEDS ORDERED: LIDOCAINE 1% 300 MG/30 ML SDV ONE (14:11)
[2017-09-19] MEDS ORDERED: MIDAZOLAM 2 MG/2 ML VIAL ONE (14:12)
[2017-09-19] MEDS ORDERED: fentaNYL 100 MCG/2 ML INJ ONE (14:12)
[2017-09-19] MEDS ORDERED: IOPAMIDOL (ISOVUE-370) 150 ML BTL IV ONE (14:12)
[2017-09-19 14:15] LABS: ANION GAP 15 mEq/L (8-16); CALCIUM 9.8 mg/dL (8.5-10.4); CARBON DIOXIDE 21 mEq/l (22-31); CHLORIDE 108 mEq/L (97-110); CHOLESTEROL 147 mg/dL (140-220); CHOLESTEROL/HDL RATIO 2.94 RATIO (1.00-4.97); GLOMERULAR FILTRATION RATE > 60; GLUCOSE 83 mg/dL (70-100); HIGH DENSITY LIPOPROTEIN 50 mg/dL (40-65); LDL/HDL RATIO 1.56 RATIO (1.00-3.64); LOW DENSITY LIPOPROTEIN 78 mg/dL (80-100); NON-HIGH DENSITY LIPOPROTEIN 97 mg/dL (90-129); POTASSIUM 4.4 mEq/L (3.5-5.2); SODIUM 144 mEq/L (134-144); TRIGLYCERIDE 95 mg/dL (40-150); VERY LOW DENSITY LIPOPROTEINS 19 mg/dL (8-25)
--- NOTE | 2017-09-19 14:45 | PDHPUP ---
History & Physical Update H&P update statement: This history and physical update is based on an assessment of the patient which was completed after admission or registration (within 24 hours), but prior to the surgery/procedure. H&P update: H&P reviewed & patient examined, no change in patient's condition since H&P completed
--- NOTE | 2017-09-19 14:45 | PDPROPOC ---
Sedation Plan of Care Sedation Plan of Care: vital signs stable, mental status noted, patient educated of risks, benefits, alternatives, patient can tolerate sedation ASA Classification: ASA 2 Planned drugs: fentanyl, midazolam Mallampati Score: Class 2 Mallampati Reference Image: Patient passed 3-3-2 rule?: Yes
[2017-09-19] MEDS ORDERED: ATROPINE SULFATE 1 MG/10 ML SYR ONE (15:37)
[2017-09-19] MEDS ORDERED: ATROPINE SULFATE 1 MG/10 ML SYR IVP PRN (15:48)
[2017-09-19] MEDS ORDERED: HYDROCODONE/APAP 5/325 TAB PO PRN (15:48)
[2017-09-19] MEDS ORDERED: OXYCODONE/APAP 5/325 TAB PO PRN (15:48)
[2017-09-19] MEDS ORDERED: NITROGLYCERIN 0.4 MG BTL SL PRN (15:48)
[2017-09-19] MEDS ORDERED: ONDANSETRON 4 MG/2 ML VIAL IVP PRN (15:48)
[2017-09-19 16:27] LABS: HEMOGLOBIN A1C 5.2 % (4.0-6.0)
--- NOTE | 2017-09-19 19:47 | CPIP ---
[f rep st] INVASIVE CARDIAC PROCEDURE DATE OF PROCEDURE: 09/19/2017 PROCEDURES: 1. Coronary angiography. 2. Left ventriculography. INDICATION: Preoperative evaluation prior to atrial fibrillation ablation and mitral valve repair. ACCESS: Patient was prepped and draped in sterile fashion. 1% lidocaine was used to anesthetize the right inguinal region. A 6-Dominican introducer sheath was placed selectively into the right common fe moral artery via modified Seldinger technique. CORONARY ANGIOGRAPHY: A 6-Dominican JL4 was advanced to the left main coronary artery and images obtain ed. The left main coronary artery bifurcated into an LAD and circumflex coronary arteries. The left main coronary artery appeared normal. The left anterior descending coronary artery gave rise to 3 d iagonal branches. The left anterior descending coronary artery is diffusely diseased. In the mid 1 segment, there is a discrete 50% stenosis present. In the mid 2 segment, there is a discrete 70% chencho nosis present. The first diagonal artery is small and free of any significant disease. The second d iagonal is moderate in size and free of any significant disease. The 3rd diagonal artery was small a nd had a mid 50% stenosis present. The circumflex coronary artery is a large vessel. It was nondomi nant. Circumflex coronary artery gave rise to 1 prominent OM branch. The circumflex coronary artery appeared normal. The first OM branch had a proximal 30% stenosis present. A 6-Dominican JR4 was advan kathy to the right coronary artery and images obtained. The right coronary artery appeared normal. LEFT VENTRICULOGRAPHY: A 6-Dominican pigtail catheter was advanced in the left ventricle and images obt ained. Left ventricle was normal size with reduced systolic function. Estimated ejection fraction w as 40% to 45% with global hypokinesis. Left ventricular end-diastolic pressure was mildly elevated a t 15 mmHg. COMPLICATIONS: None. CONCLUSIONS: Significant mid-left anterior descending coronary artery disease. Consider BOWERS graft at the time of surgery. /[id number]/MODL
[2017-09-20] MEDS ORDERED: ATORVASTATIN CALCIUM 10 MG TAB PO SCH (09:00)
[2017-09-20] MEDS ORDERED: DILTIAZEM CD 180 MG CAP PO SCH (09:00)
== END 2017-09-19 19:40 | disposition home or self-care (01) ==
LOC: FCATH 13:06
PROVIDERS: ATTEND Thoracic Surgery (Cardiothoracic Vascular Surgery)
PROC: 4A023N7 Measurement of Cardiac Sampling and Pressure, Left Heart, Percutaneous Approach (ICD-10-PCS; principal; 2017-09-19)
PROC: B2151ZZ Fluoroscopy of Left Heart using Low Osmolar Contrast (ICD-10-PCS; principal; 2017-09-19)
PROC: B2111ZZ Fluoroscopy of Multiple Coronary Arteries using Low Osmolar Contrast (ICD-10-PCS; principal; 2017-09-19)
DX: I48.1 Persistent atrial fibrillation (principal); I34.0 Nonrheumatic mitral (valve) insufficiency
CPT/HCPCS: J0461; J1644; J2250; J3010; Q9967

== ENCOUNTER 2017-09-21 05:51 | Inpatient (IN) | payer OTHER ==
[2017-09-21] MEDS ORDERED: AMINOCAPROIC ACID 5 GM/20 ML VIAL IV ONE (06:00)
[2017-09-21] MEDS ORDERED: ceFAZolin 2 GM/SWFI 2 GM/20 ML SYR IVP ONE (06:00)
[2017-09-21] MEDS ORDERED: LIDOCAINE 1% 5 ML SDV ID PRN (06:00)
[2017-09-21] MEDS ORDERED: NS 1,000 ML IV ONE (06:00)
[2017-09-21] MEDS ORDERED: niCARdipine/NACL 200 ML IV ONE (06:00)
[2017-09-21] MEDS ORDERED: PHENYLEPHRINE HCL 50 MG in NS 250 ML IV ONE (06:00)
[2017-09-21] MEDS ORDERED: NOREPINEPHRINE BITARTRATE 16 MG in NS 250 ML IV ONE (06:00)
[2017-09-21] MEDS ORDERED: INSULIN REGULAR HUMAN 100 UNIT in NS 100 ML IV ONE (06:00)
[2017-09-21] MEDS ORDERED: CITRATE DEXTROSE SOLN 500 ML BAG MISC ONE (06:00)
[2017-09-21] MEDS ORDERED: SODIUM BICARBONATE 20 MEQ, LIDOCAINE 1% 10 ML in NORMOSOL-R 1,000 ML MISC ONE (06:00)
[2017-09-21] MEDS ORDERED: MANNITOL 25% 12.5 GM/50 ML VIAL IVP ONE (06:00)
[2017-09-21] MEDS ORDERED: LR 1,000 ML IV ONE (06:20)
[2017-09-21] MEDS ORDERED: MILRINONE/DEXTROSE/100 ML BAG IV ONE (06:44)
[2017-09-21] MEDS ORDERED: NA BICARBONATE 50 MEQ/50 ML VIAL ONE (06:44)
[2017-09-21] MEDS ORDERED: PROTAMINE SULFATE 50 MG/5 ML VIAL IVP ONE (06:44)
[2017-09-21] MEDS ORDERED: CALCIUM CHLORIDE 1 GM/10 ML INJ ONE (06:44)
[2017-09-21] MEDS ORDERED: ALBUMIN 5% 250 ML BOTTLE IV ONE (06:44)
[2017-09-21] MEDS ORDERED: LIDOCAINE 2% 100 MG/5 ML SYR ONE ×2 (06:44→07:27)
[2017-09-21] MEDS ORDERED: ADENOSINE 6 MG/2 ML VIAL ONE (06:45)
[2017-09-21] MEDS ORDERED: MAGNESIUM SULFATE 1 GM/2 ML VIAL ONE (06:45)
[2017-09-21] MEDS ORDERED: AMIODARONE HCL 150 MG/3 ML VIAL ONE (06:45)
[2017-09-21] MEDS ORDERED: niCARdipine/NACL/200 ML BAG IV ONE (06:45)
[2017-09-21] MEDS ORDERED: methylPREDNISolone SOD SUCC 1 GM/8 ML VIAL ONE (06:45)
[2017-09-21] MEDS ORDERED: CITRATE DEXTROSE SOLN 500 ML BAG ONE (06:45)
[2017-09-21] MEDS ORDERED: ceFAZolin 1 GM VIAL ONE (06:45)
[2017-09-21] MEDS ORDERED: DOPamine/DEXTROSE/250 ML BAG IV ONE (06:45)
[2017-09-21] MEDS ORDERED: HEPARIN 10,000 UNIT/10 ML MDV ONE (06:45)
[2017-09-21] MEDS ORDERED: PAPAVERINE HCL 60 MG/2 ML SDV ONE (06:46)
[2017-09-21] MEDS ORDERED: VERAPAMIL 5 MG/2 ML VIAL ONE (06:46)
[2017-09-21] MEDS ORDERED: TRANEXAMIC ACID 1,000 MG/10 ML VIAL ONE (06:47)
--- NOTE | 2017-09-21 06:55 | PDGENHP ---
History and Physical - Chief Complaint Afib, MR, CAD - History of Present Illness 66 yo male with lifestyle limiting increase in frequency of LPAF assoc with progressive MR, evaluated in clinic in mid Aug for consideration Hybrid Maze procedure with MV rpr/replace. Interim risk stratification imaging notable for severe MR and high grade LAD stenosis and procedure changed to median sternotomy with CoxMaze IV, MV repair/replace and CABG x 1. He has continued to feel fatigued, at times needing to nap 2x daily. No longer able to jog. Believes he is in AF most of the day. Does feel bouts of palpitations, generally assoc with SOB. No CP, presyncope, wt gain, edema, orthopnea, or abd discomfort. History Information - Allergies/Home Medication List Allergies/Adverse Reactions: No Known Allergies Allergy (Verified 09/11/17 15:53) Home Medications: Atorvastatin Calcium [Lipitor 10 mg (*)] 10 mg PO DAILY 01/31/17 [Last Taken ] Diltiazem HCl [Cartia XT 180mg] 180 mg PO DAILY 05/24/17 [Last Taken 09/19/17] Enoxaparin [Lovenox 80 MG (*)] 80 mg SQ BID 09/11/17 [Last Taken 09/18/17] Ascorbic Acid [Vitamin C 500 mg (*)] 500 mg PO DAILY 09/13/17 [Last Taken ] [place]-3 Fatty Acids [Fish Oil 1000 mg (*)] 1,000 mg PO DAILY 09/13/17 [Last Taken 09/18/17] I have personally reviewed and updated: medical history, social history, surgical history - Past Medical History atrial fibrillation (refractory to perc ablations x2, antiarrhythmic therapy ( Rhythmol) and DC CVSNs; chronically anticoagulated on Eliquis), hyperlipidemia Additional medical history: Tachycardia induced cardiomyopathy. BPH w LUTS of urgency and frequency. Cervical discitis assoc with rare "bad headaches". Gilbert's syndrome. FABRICIO, awaiting CPAP - Surgical History Reports: ablation (catheter based cryo and RF ablations) - Social History Smoking Status: Former smoker Review of Systems Review of Systems: ROS: 10pt was reviewed & negative except for what was stated in HPI & below (in HPI and PMH) Hematologic/Lymphatic: Reports: no symptoms Physical Exam Physical Exam: Constitutional: no apparent distress, appears nourished Eyes: anicteric sclera Ears, Nose, Mouth, Throat: moist mucous membranes, other (no visible dental disrepair) Cardiovascular: systolic murmur, irregularly irregular, pulses symmetric bilaterally Peripheral Pulses: 3+: dorsalis-pedis (R), dorsalis-pedis (L) Respiratory: no respiratory distress, clear to auscultation Gastrointestinal: soft, non-tender abdomen Skin: warm, no rashes or abrasions Musculoskeletal: other (symmetric tone) Psychiatric: interacting appropriately, not anxious Lab Data & Imaging Review Preop labs reviewed, essentially WNL Imaging Review: Chest CT, carotid US, echos Assessment & Plan Assessment: Sx LPAF 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
[2017-09-21] MEDS ORDERED: MIDAZOLAM 2 MG/2 ML VIAL IVP ONE (07:06)
--- NOTE | 2017-09-21 07:09 | PDANEPAE ---
ANE History of Present Illness MV repair, ?BOWERS-LAD, MAZE Hx Severe MR, afib, 70% LAD ANE Past Medical History - Cardiovascular History Hx Hypertension: No Hx Arrhythmias: Yes Hx Chest Pain: No Hx Coronary Artery / Peripheral Vascular Disease: No Hx CHF / Valvular Disease: No Hx Palpitations: No Cardiovascular History Comment: Mitral regurgitation. on Eliquis w/A fib - Pulmonary History Hx COPD: No Hx Asthma/Reactive Airway Disease: No Hx Recent Upper Respiratory Infection: No Hx Oxygen in Use at Home: No Hx Sleep Apnea: Yes Pulmonary History Comment: recent SOB w/activity w/ A fib. Recent dx of FABRICIO- CPAP has not been delivered yet per pt. - Neurologic History Hx Cerebrovascular Accident: No Hx Seizures: No Hx Dementia: No - Endocrine History Hx Diabetes: No - Renal History Hx Renal Disorders: Yes Renal History Comment: BPH - Liver History Hx Hepatic Disorders: No - Neurological & Psychiatric Hx Hx Neurological and Psychiatric Disorders: Yes Neurological / Psychiatric History Comment: low back pain on L side - Cancer History Hx Cancer: No - Congenital Disorder History Hx Congenital Disorders: No - GI History Hx Gastrointestinal Disorders: Yes Gastrointestinal History Comment: Gilbert's disease? - Chronic Pain History Chronic Pain: No - Surgical History Prior Surgeries: Ablation x2 -5-17, previously. elbow sx. Bilat cataract extractions w/IOL ANE Review of Systems Review of Systems: - Exercise capacity Exercise capacity: >=4 METS ANE Patient History - Allergies Allergies/Adverse Reactions: No Known Allergies Allergy (Verified 09/11/17 15:53) - Home Medications Home medications: home medication list seen and reviewed Home Medications: Atorvastatin Calcium [Lipitor 10 mg (*)] 10 mg PO DAILY 01/31/17 [Last Taken ] Diltiazem HCl [Cartia XT 180mg] 180 mg PO DAILY 05/24/17 [Last Taken 09/19/17] Enoxaparin [Lovenox 80 MG (*)] 80 mg SQ BID 09/11/17 [Last Taken 09/18/17] Ascorbic Acid [Vitamin C 500 mg (*)] 500 mg PO DAILY 09/13/17 [Last Taken ] [place]-3 Fatty Acids [Fish Oil 1000 mg (*)] 1,000 mg PO DAILY 09/13/17 [Last Taken 09/18/17] - NPO status NPO Status: no food or drink >8 hours NPO Since - Liquids (Date): 09/20/17 NPO Since - Liquids (Time): 20:30 NPO Since - Solids (Date): 09/20/17 NPO Since - Solids (Time): 20:30 - Anes Hx Anes Hx: no prior problems - Smoking Hx Smoking Status: Former smoker - Alcohol Use Alcohol Use: Occasionally ANE Labs/Vital Signs - Vital Signs Blood Pressure: 148/91 Heart Rate: 94 Respiratory Rate: 16 O2 Sat (%): 95 Height: 180.34 cm Weight: 79.379 kg ANE Physical Exam - Airway Neck exam: FROM Mallampati Score: Class 1 Mouth exam: normal dental/mouth exam - Pulmonary Pulmonary: no respiratory distress - Cardiovascular Cardiovascular: regular rate and rhythym - ASA Status ASA Status: III ANE Anesthesia Plan Anesthesia Plan: general endotracheal anesthesia Lines/Monitors: arterial line (femoral by CTS), central line, TANNER
[2017-09-21] MEDS ORDERED: MIDAZOLAM 2 MG/2 ML VIAL ONE ×3 (07:11→07:22)
[2017-09-21] MEDS ORDERED: REMIFENTANIL HCL 1 MG VIAL ONE (07:22)
[2017-09-21] MEDS ORDERED: PROPOFOL/EMULSION 500 MG/50 ML BOTTLE IV ONE ×2 (07:23→10:23)
[2017-09-21] MEDS ORDERED: fentaNYL 250 MCG/5 ML INJ ONE (07:23)
[2017-09-21] MEDS ORDERED: DEXAMETHASONE 4 MG/ML VIAL ONE ×2 (07:27)
[2017-09-21] MEDS ORDERED: ROCURONIUM 100 MG/10 ML VIAL ONE (07:27)
[2017-09-21] MEDS ORDERED: ONDANSETRON 4 MG/2 ML VIAL ONE ×2 (07:27→11:46)
[2017-09-21] MEDS ORDERED: DEXMEDETOMIDINE HCL 400 MCG in NS 100 ML IV SCH (07:30)
[2017-09-21] MEDS ORDERED: DEXMEDETOMIDINE IN 0.9 % NACL 100 ML IV SCH (07:30)
[2017-09-21] MEDS ORDERED: PHENYLEPHRINE HCL 100 MCG/ML SYR ONE ×3 (07:35→08:40)
[2017-09-21] MEDS ORDERED: BUPIVACAINE 0.25% 30 ML SDV ONE (09:53)
[2017-09-21] MEDS ORDERED: fentaNYL 50 MCG PATCH TD ONE (10:00)
[2017-09-21] MEDS ORDERED: MINERAL OIL 10 ML VIAL ONE (10:54)
[2017-09-21] MEDS ORDERED: KETOROLAC 30 MG/1 ML SDV ONE (11:35)
[2017-09-21] MEDS ORDERED: SUGAMMADEX SODIUM 200 MG/2 ML VIAL IVP ONE (11:46)
[2017-09-21] MEDS ORDERED: fentaNYL 100 MCG/2 ML INJ ONE (11:50)
[2017-09-21] MEDS ORDERED: BISACODYL 10 MG SUPP PR PRN (12:20)
[2017-09-21] MEDS ORDERED: D50W 25 GM/50 ML SYR IVP PRN (12:20)
[2017-09-21] MEDS ORDERED: MEPERIDINE 25 MG/ML SYR IVP PRN (12:20)
[2017-09-21] MEDS ORDERED: MAGNESIUM SULF 2 GM/WATER 50 ML IV ONE (12:20)
[2017-09-21] MEDS ORDERED: POTASSIUM Cl (KCl) 50 ML IV PRN (12:20)
[2017-09-21] MEDS ORDERED: CEPACOL LOZENGE PO PRN (12:20)
[2017-09-21] MEDS ORDERED: PANTOPRAZOLE SODIUM 40 MG VIAL IVP ONE (12:20)
[2017-09-21] MEDS ORDERED: ONDANSETRON 4 MG/2 ML VIAL IVP PRN (12:20)
[2017-09-21] MEDS ORDERED: METOCLOPRAMIDE 10 MG/2 ML VIAL IVP PRN (12:20)
[2017-09-21] MEDS ORDERED: ONDANSETRON DISINTEGRATING 4 MG TAB PO PRN (12:20)
[2017-09-21] MEDS ORDERED: ACETAMINOPHEN 325 MG TAB PO PRN (12:20)
[2017-09-21] MEDS ORDERED: ACETAMINOPHEN 650 MG SUPP PR PRN (12:20)
[2017-09-21] MEDS ORDERED: SODIUM CL NASAL 45 ML BTL EACHNARE PRN (12:20)
[2017-09-21] MEDS ORDERED: LACTULOSE 20 GM/30 ML UDCUP PO PRN (12:20)
[2017-09-21] MEDS ORDERED: ALBUMIN 5% 250 ML IV PRN (12:20)
[2017-09-21] MEDS ORDERED: POLYETHYLENE GLYCOL 3350 17 GM PKT PO PRN (12:20)
[2017-09-21] MEDS ORDERED: MAGNESIUM HYDROXIDE 30 ML UDCUP PO PRN (12:20)
[2017-09-21] MEDS ORDERED: NOREPINEPHRINE BITARTRATE 16 MG in NS 250 ML IV SCH (12:30)
[2017-09-21] MEDS ORDERED: INSULIN REGULAR HUMAN 100 UNIT in NS 100 ML IV SCH (12:30)
[2017-09-21] MEDS ORDERED: NS 1,000 ML IV SCH (12:30)
[2017-09-21] MEDS ORDERED: KETOROLAC 30 MG/1 ML SDV IVP ONE (12:54)
[2017-09-21] MEDS: MUPIROCIN 2% 22 GM OINT NS SCH ×3 (14:05→22:00)
--- NOTE | 2017-09-21 14:50 | GCON ---
[f rep st] CONSULTATION PLACEMENT SPECIALIST CONSULTATION. REASON FOR ADMISSION: Coronary artery bypass graft, Lance maze procedure. HISTORY OF PRESENT ILLNESS: The patient is a 66-year-old white male with a past medical history of a trial fibrillation and hyperlipidemia. He is examined postoperatively after receiving a Lance Maze as well as mitral valve replacement and a coronary bypass graft. The patient is currently sedated and o n mechanical ventilation. All history is gleaned from the medical record. 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 PAST SURGICAL HISTORY: Has had a previous ablation. SOCIAL HISTORY: Previous smoker; none for many years. No significant alcohol use. He is an d has excellent family support. REVIEW OF SYSTEMS: A 10-point review of systems was performed. Patient is currently sedated and mariah ble to provide. PHYSICAL EXAMINATION: VITAL SIGNS: Blood pressure is 148/91, pulse is 94, respirations 16, temperat ure is 36.9, oxygen saturation 95% on mechanical ventilation. GENERAL: He is a well-developed, well -nourished, 66-year-old white male who is resting comfortably in no acute distress. HEENT: Eyes are PERRLA, EOMI. Throat: Endotracheal tube in good position. NECK: Supple. No cervical adenopathy. HEART: Regular rate and rhythm without murmurs, rubs, or gallops. LUNGS: Diminished breath sound s but no wheeze. ABDOMEN: Soft, nontender. Bowel sounds are present. EXTREMITIES: No clubbing, c yanosis, or edema. LABORATORY DATA: Currently pending. IMPRESSION: 1. Coronary artery disease. 2. Status post mitral valve replacement, coronary bypass graft, and Lance Maze. 3. Atrial fibrillation. 4. Hyperlipidemia. 5. Obstructive sleep apnea. 6. Gilbert syndrome. 7. Acute respiratory failure secondary to above. RECOMMENDATIONS: 1. Adequate pain control. 2. Wean from mechanical ventilation as tolerated. 3. DVT and PE prophylaxis, holding anticoagulation for now. 4. Stress ulcer prophylaxis. 5. PT and OT. 6. Early ambulation. 7. /[id number]/MODL
[2017-09-21] MEDS: ceFAZolin 2 GM/DEXTROSE 100 ML IV SCH ×2 (15:19→22:00)
--- NOTE | 2017-09-21 15:26 | CPEKG ---
Heart Rate: 80 RR Interval: 750 P-R Interval: 222 QRSD Interval: 94 QT Interval: 404 QTC Interval: 466 QRS Mcroberts: -45 T Wave Mcroberts: 23 EKG Severity - ABNORMAL ECG - EKG Impression: ATRIAL-PACED RHYTHM EKG Impression: INFERIOR INFARCT, AGE INDETERMINATE EKG Impression: COMPARED WITH 09/19/2017 A PACING NOW PRESENT Electronically Signed By: Yanelis Hilliard 21-Sep-2017 17:10:27
[2017-09-21] MEDS ORDERED: fentaNYL 100 MCG/2 ML INJ IVP PRN (16:12)
--- NOTE | 2017-09-21 19:12 | GOP ---
[f rep st] OPERATIVE REPORT DATE OF OPERATION: 09/21/2017 SURGEON: Tomás Sosa DO CERAMIC ENGINEER: Marissa Soria PA-C ANESTHESIOLOGIST: Yfn Nair MD. PREOPERATIVE DIAGNOSIS: 1. History of tachycardia-mediated cardiomyopathy with persistent cardiomyopathic findings. 2. Vyqqfopu-fe-aqndck mitral insufficiency. 3. Long-standing persistent atrial fibrillation. 4. Arteriosclerotic heart disease. POSTOPERATIVE DIAGNOSIS: 1. History of tachycardia-mediated cardiomyopathy with persistent cardiomyopathic findings. 2. Rqaxugip-rv-ufiamo mitral insufficiency. 3. Long-standing persistent atrial fibrillation. 4. Arteriosclerotic heart disease. PROCEDURE PERFORMED: 1. Left internal mammary artery to the left anterior descending. 2. Mitral repair with a #28 ring. 3. Lance Maze IV with both left and right sides performed utilizing cryo and radiofrequency ablation w ith testing. FINDINGS: DESCRIPTION OF PROCEDURE: Patient was consented for surgery and brought to the operating room intuba sarah. Monitoring lines were placed. Transesophageal echo confirmed an ejection fraction of 45% to 50 % with no segmental abnormality. He was in controlled atrial fibrillation. He was intubated. Monit oring lines were placed. He was prepped and draped in sterile classical manner. Sternotomy was perf ormed. He was then heparinized and cannulated in the ascending aorta, which was without thickening o r calcification, and the bi-caval cannulae were placed as well with caval tapes. The right pulmonary vein was then dissected, and prior to ablating it, we cardioverted the patient to sinus rhythm and c onfirmed that he had no evidence of entrance or exit block on the right or left side. We then perfor med approximately 9 to 11 ablations on both the right and left pulmonary vein antra with evidence of exit and entrance block on both sides. We then marked the terminus of the left and right vessels ove r the coronary sinus, arrested the heart with antegrade cardioplegia, and proceeded with exposing the mitral valve through the right superior pulmonary vein, extending the incisions all the way over to almost the mitral anulus, for almost a complete cut and sew Maze, with the completion performed on th e roof and floor with multiple radiofrequency ablations, terminating in less than 10 seconds. We als o made sure that they crossed the left pulmonary vein antrum lines, which were well visualized. We t hen excised the left atrial appendage at the apex, placed a radiofrequency ablation cannula across th at, crossing the left superior pulmonary vein line, and ablating there until the duration was less th an 10 seconds. A 40 mm AtriClip was placed across the base of the appendage, which was hemostatic. We then performed the radiofrequency line to the mitral anulus after the floor lesion was completed, and then completed that across the isthmus with cryo for 3 minutes. We then overlapped that cryo humaira e with a previously placed jasmine as the terminus of the left and right coronary sinus area, and did a cryoablation overlapping it with the internal for 3 minutes. A retrograde catheter was then placed. We then exposed the mitral valve, which had annular dilatation and essentially multiple jets of cent ral regurgitation on echo. Annuloplasty sutures were placed. The patient was sized for a 28 ring. It was secured with Cor-Knots. Distention of the ventricle revealed no regurgitation. Left atrium w as closed in standard fashion. We then grafted the mammary to the very distal LAD, where it had a so ft spot anteriorly. The vessel was diffusely calcified throughout its course with heavy plaque. Thi s was tacked to the epicardium. It should be noted, the mammary was harvested before heparinizing an d cannulating. It was a 2.5 mm excellent vessel with good flow. With the cross-clamp removed in [facility], with suction on the ascending aortic vent, we then de-aired the LV apex multiple times an d then performed a vertical atriotomy in the right atrium, connecting it to the tricuspid isthmus wit h 3 minutes of cryo with blood perfusing in the right coronary artery. We then performed a free wall ablation and superior and inferior vena caval ablations with radiofrequency, extending as far cephal ad and caudal as possible. Right atrium was then closed with Prolene. Spontaneous cardiac activity was noted to resume. Patient was rewarmed and weaned from bypass. Heparin was reversed with protami ne. Cannulae were removed and oversewn. Four pacing wires, one left pleural and one mediastinal gifty in were placed. The thymic fat and pericardium were closed. The chest was closed in standard fashio n. Transesophageal echo revealed moderate LV dysfunction with ejection fraction of 35%, which was sy mmetrical. This seemed improved with atrial pacing and discontinuing ventricular pacing. There was no mitral insufficiency and no evidence of stenosis. The patient was returned to ICU in critical con dition. /[id number]/MODL
[2017-09-21 19:23] LABS: CALCULATED OXYGEN SATURATION 96 % (92-95); O2 CONCENTRATIION 60 % (0-100)
[2017-09-21 19:23] LABS: CALCULATED OXYGEN SATURATION 97 % (92-95); O2 CONCENTRATIION 40 % (0-100)
[2017-09-21] MEDS: KETOROLAC 15 MG/1 ML SDV IVP SCH (19:31)
[2017-09-21] MEDS: FAMOTIDINE 20 MG/NACL 50 ML IV SCH (20:07)
[2017-09-21] MEDS: CHLORHEXIDINE GLUCONATE 15 ML UDL PO SCH (22:00)
[2017-09-22 00:04] LABS: HEMATOCRIT 38.1 % (40.0-51.0); HEMOGLOBIN 13.7 g/dL (13.7-17.5); MEAN CELL HEMOGLOBIN 33.6 pg (27.9-34.1); MEAN CELL VOLUME 93.4 fL (81.5-99.8); RED BLOOD CELL COUNT 4.08 10^6/uL (4.40-6.38); RED CELL DISTRIBUTION WIDTH 12.6 % (11.5-15.2)
[2017-09-22] MEDS: KETOROLAC 15 MG/1 ML SDV IVP SCH ×4 (00:52→20:59)
[2017-09-22 04:22] LABS: INR 1.28 (0.83-1.16); PROTIME(PATIENT) 16.2 SEC (12.0-15.0)
[2017-09-22 04:32] LABS: % IMMATURE GRANULYOCYTES 0.6 % (0.0-1.1); ABSOLUTE IMMATURE GRANULOCYTES 0.11 10^3/uL (0.00-0.10); ADD DIFF? NO; ADD MORPH? NO; ADD SCAN? NO; ATYPICAL LYMPHOCYTE FLAG 10 (0-99); FRAGMENT RBC FLAG 0 (0-99); HEMATOCRIT 38.8 % (40.0-51.0); HEMOGLOBIN 13.5 g/dL (13.7-17.5); LEFT SHIFT FLG 0 (0-99); LIPEMIA HEMOLYSIS FLAG 90 (0-99); MEAN CELL HEMOGLOBIN 33.3 pg (27.9-34.1); MEAN CELL HEMOGLOBIN CONCENTR. 34.8 g/dL (32.4-36.7); MEAN CELL VOLUME 95.6 fL (81.5-99.8); MEAN PLATELET VOLUME 11.3 fL (8.7-11.7); PLATELET CLUMPS FLAG 10 (0-99); PLATELET COUNT 158 10^3/uL (150-400); RED BLOOD CELL COUNT 4.06 10^6/uL (4.40-6.38); RED CELL DISTRIBUTION WIDTH 12.6 % (11.5-15.2)
[2017-09-22 04:37] LABS: ANION GAP 7 mEq/L (8-16); CALCIUM 8.7 mg/dL (8.5-10.4); CARBON DIOXIDE 28 mEq/l (22-31); CHLORIDE 109 mEq/L (97-110); CREATININE 0.9 mg/dL (0.7-1.3); GLOMERULAR FILTRATION RATE > 60; GLUCOSE 89 mg/dL (70-100); SODIUM 144 mEq/L (134-144)
[2017-09-22] MEDS: HEPARIN 5,000 UNIT/0.5 ML SYR SC SCH ×3 (05:11→21:10)
[2017-09-22] MEDS: ceFAZolin 2 GM/DEXTROSE 100 ML IV SCH ×3 (05:11→21:05)
[2017-09-22] MEDS ORDERED: HEPARIN 5,000 UNIT/0.5 ML SYR SC SCH (06:00)
--- NOTE | 2017-09-22 06:10 | SOAPPROG ---
SOAP Progress Note Assessment/Plan: POD #1: CABGx1 (BOWERS-LAD), MV repair with #25 Physio ring, Lance-Maze IV CAD - s/p CABGx1. ASA, BB, statin for secondary prevention. Chest tubes to bulb suction. FC out. AL already removed. Mod-severe MR - s/p MV repair. Coumadin as per CM4. Long-standing persistent AF - s/p CM 4. Currently SR in 60s. Thromboprophylaxis with Coumadin, INR goal 2-3, duration as per CM 4 protocol. BB/CCB as tolerated. Acute blood loss anemia - stable without the need for BP transfusion. Subjective: Has a knot in his back which was there prior to surgery. Denies CP/SOB. Objective: Vital Signs Temp Pulse Resp BP Pulse Ox 37.4 C 80 12 106/70 95 09/22/17 05:00 09/22/17 05:00 09/22/17 05:00 09/22/17 05:00 09/22/17 05:00 Laboratory Results 09/22/17 04:00 09/22/17 04:00 09/21/17 09/22/17 09/23/17 05:59 05:59 05:59 Intake Total 1000.7 Output Total 1645 Balance -644.3 PT 16.2 SEC (12.0-15.0) H 09/22/17 04:00 INR 1.28 (0.83-1.16) H 09/22/17 04:00 Physical Exam - Physical Exam General Appearance: WD/WN, alert, no apparent distress EENT: No scleral icterus (R), No scleral icterus (L) Neck: normal inspection Respiratory: No respiratory distress Cardiac/Chest: regular rate, rhythm, bradycardia Abdomen: non-tender, soft, No distended Skin: normal color, warm/dry Extremities: No pedal edema Neuro/Psych: no motor/sensory deficits, alert, normal mood/affect, oriented x 3 ICD10 Worksheet Patient Problems: Problems Problem Status Onset Acute blood loss anemia Acute S/P CABG x 1 Acute ~09/21/17 S/P Maze operation for atrial fibrillation Acute ~09/21/17 Status post mitral valve annuloplasty Acute ~09/21/17 BPH w urinary obs/LUTS Chronic FABRICIO (obstructive sleep apnea) Chronic CAD in [place] artery Acute Atrial fibrillation, persistent Chronic Chronic anticoagulation Chronic Myxomatous mitral valve regurgitation Chronic
[2017-09-22] MEDS: HYDROCODONE/APAP 5/325 TAB PO PRN ×2 (07:54→15:55)
[2017-09-22] MEDS ORDERED: ASPIRIN 81 MG CHEWABLE TAB TUBE PRN (09:00)
[2017-09-22] MEDS: PANTOPRAZOLE SODIUM 40 MG TAB PO SCH (09:14)
[2017-09-22] MEDS: ASPIRIN 81 MG CHEWABLE TAB PO SCH (09:14)
--- NOTE | 2017-09-22 09:25 | PDINTPN ---
Guidance Secretary Progress Note Assessment/Plan: Assessment/plan: * Status post coronary bypass Suzanne, mitral valve replacement and Lance Maze procedure * Respiratory-stable * Obstructive sleep apnea-not currently on treatment. Awaiting CPAP machine at home * Pain-well controlled * Hyperlipidemia * Atrial fibrillation * PT/OT * Out of bed Case discussed with nursing Subjective: Up in chair. Comfortable. Pain is well tolerated. Denies breathlessness. Objective: Vital Signs Temp Pulse Resp BP Pulse Ox 37.4 C 84 12 84/55 L 94 09/22/17 05:00 09/22/17 07:00 09/22/17 07:00 09/22/17 07:00 09/22/17 07:00 Laboratory Results 09/22/17 04:00 09/22/17 04:00 09/21/17 09/22/17 09/23/17 05:59 05:59 05:59 Intake Total 1000.7 Output Total 1645 Balance -644.3 PT 16.2 SEC (12.0-15.0) H 09/22/17 04:00 INR 1.28 (0.83-1.16) H 09/22/17 04:00 - Time Spent With Patient Time Spent With Patient: 25 min of time spent with patient, over 1/2 involved with counseling or coordination of care Physical Exam - Physical Exam General Appearance: alert, no apparent distress EENT: PERRL/EOMI, normal ENT inspection Neck: non-tender, full range of motion, supple, normal inspection Respiratory: chest non-tender, crackles (Few basilar crackles) Cardiac/Chest: regular rate, rhythm, systolic murmur Abdomen: normal bowel sounds, non-tender, soft Male Genitalia: deferred Rectal: deferred Skin: normal color, warm/dry Extremities: normal range of motion, non-tender, normal inspection, normal capillary refill Neuro/Psych: alert ICD10 Worksheet Patient Problems: Problems Problem Status Onset Acute blood loss anemia Acute S/P CABG x 1 Acute ~09/21/17 S/P Maze operation for atrial fibrillation Acute ~09/21/17 Status post mitral valve annuloplasty Acute ~09/21/17 BPH w urinary obs/LUTS Chronic FABRICIO (obstructive sleep apnea) Chronic CAD in [place] artery Acute Atrial fibrillation, persistent Chronic Chronic anticoagulation Chronic Myxomatous mitral valve regurgitation Chronic
--- NOTE | 2017-09-22 09:54 | ASMTCMCOM ---
CM Note CM Note Notes: Patient is POD #1 CABG, MVR, and Lance Maze with Dr Sosa. He is currently stable and out of bed in the ICU. PT/OT evals have been ordered. Patient lives independently with his . Discharge needs TBD pending therapy evals and clinical progress. CM will follow. Current CM Discharge plan: TBD Date Signed: 09/22/2017 09:54 AM Electronically Signed By:Shy Segovia RN
[2017-09-22] MEDS: MUPIROCIN 2% 22 GM OINT NS SCH ×2 (11:53→21:00)
[2017-09-22 12:27] LABS: POTASSIUM 4.8 mEq/L (3.5-5.2)
--- NOTE | 2017-09-22 13:01 | ECHO ---
[email or web address] [address] [address] Main: [phone] Fax: Transthoracic Echocardiogram Name: ALBERTO PAL MR#: [id number] Study Date: 09/22/2017 Study Time: 11:52 AM Date of : 1950 Age: 66 year(s) Height: 180.3 cm (71 in.) Weight: 83.01 kg (183 lb.) BSA: 2.03 m2 Gender: Male Examination: Echo Indication: S/P MV repair with #28 physio ring/shelby-maze 4, CABG x 1 Image Quality: Contrast: Requested by: Rey Sanchez BP: 103 mmHg/74 mmHg Heart Rate: Rhythm: Indication: S/P MV repair with #28 physio ring/shelby-maze 4, CABG x 1 Procedure Staff Nuclear Instructor: Lesly Mast Physician: Getachew Quinn Requesting Provider: Conclusions: Normal size left ventricle. Mild concentric LV hypertrophy. The ejection fraction is estimated to be 60-65 %. There is no mitral valve regurgitation. An annuloplasty ring is noted in the mitral valve position. MV max PG is 7mmHG. MV mean PG is 3mmHG.. The pulmonary artery pressure is mildly increased. No pericardial effusion. Measurements: Chambers Valvular Assessment AV/MV Valvular Assessment TV/PV Normal Normal Normal Name Value Range Name Value Range Name Value Range Ao [place] (MM): 3.9 cm (2.2 cm-3.7 AV meanP mmHg ( - ) TR Vmax: 2.55 mm/s ( - ) cm) MV E Vmax: 1.41 m/s ( - ) TR PGmax: 26 mmHg ( - ) IVSd (2D): 1.4 cm (0.6 cm-1.1 MV A Vmax: 0.57 m/s ( - ) syst. PAP: 31 mmHg ( - ) cm) MV E/A: 2.47 ( - ) LVDd (2D): 5.0 cm (4.2 cm-5.9 MV meanP mmHg ( - ) cm) LVDs (2D): 3.0 cm (2.1 cm-4 cm) LVPWd (2D): 0.9 cm (0.6 cm-1 cm) LVEF (2D): 70 (>=54 %) EF Range: 60-65 % Continued Measurements: Chambers Valvular Assessment AV/MV Valvular Assessment TV/PV Patient: ALBERTO PAL Study Date: 09/22/2017 Page 1 of 2 11:52 AM Name Value Name Value Name Value LADs: 4.4 cm MV DecTime: 254 m/s CVP (est.): 5 mmHg LADs Lon.4 cm MV VTI: 29.00 cm LA Area: 19.2 cm2 Findings: Left Ventricle: Normal size left ventricle. Mild concentric LV hypertrophy. Normal global systolic LV function. The ejection fraction is estimated to be 60-65 %. No regional wall motion abnormality. Right Ventricle: Mildly dilated right ventricle. Left Atrium: The left atrium is normal in size. Right Atrium: The right atrium is mildly dilated. Mitral Valve: There is no mitral valve regurgitation. An annuloplasty ring is noted in the mitral valve position. MV max PG is 7mmHG. MV mean PG is 3mmHG.. Aortic Valve: The aortic valve is tri-leaflet and functions normally. No aortic valve stenosis is present. There is no aortic valve regurgitation. Mild calcification of the NCC of the aortic valve.. Tricuspid Valve: The tricuspid valve is normal in appearance and function. Mild tricuspid regurgitation is present. The pulmonary artery pressure is mildly increased. Pulmonic Valve: The pulmonic valve is normal in appearance and function. Trivial pulmonic valve regurgitation. Aorta: Dilated aortic root measuring 3.9 cm. Pericardium: No pericardial effusion. (No Signature Object) Patient: ALBERTO PAL Study Date: 09/22/2017 Page 2 of 2 11:52 AM [id number]
[2017-09-22] MEDS ORDERED: WARFARIN SODIUM 5 MG TAB PO ONE (16:00)
[2017-09-22] MEDS: CHLORHEXIDINE GLUCONATE 15 ML UDL PO SCH (20:56)
[2017-09-22] MEDS: FAMOTIDINE 20 MG/NACL 50 ML IV SCH (20:56)
[2017-09-23] MEDS: KETOROLAC 15 MG/1 ML SDV IVP SCH ×2 (00:30→05:09)
[2017-09-23 04:37] LABS: % IMMATURE GRANULYOCYTES 0.6 % (0.0-1.1); ABSOLUTE IMMATURE GRANULOCYTES 0.09 10^3/uL (0.00-0.10); ADD DIFF? NO; ADD MORPH? NO; ADD SCAN? NO; ATYPICAL LYMPHOCYTE FLAG 0 (0-99); FRAGMENT RBC FLAG 0 (0-99); HEMATOCRIT 35.3 % (40.0-51.0); HEMOGLOBIN 12.1 g/dL (13.7-17.5); LEFT SHIFT FLG 0 (0-99); LIPEMIA HEMOLYSIS FLAG 90 (0-99); MEAN CELL HEMOGLOBIN 33.2 pg (27.9-34.1); MEAN CELL HEMOGLOBIN CONCENTR. 34.3 g/dL (32.4-36.7); MEAN PLATELET VOLUME 11.4 fL (8.7-11.7); PLATELET CLUMPS FLAG 10 (0-99); PLATELET COUNT 119 10^3/uL (150-400); RED BLOOD CELL COUNT 3.64 10^6/uL (4.40-6.38); RED CELL DISTRIBUTION WIDTH 12.9 % (11.5-15.2)
[2017-09-23 04:54] LABS: INR 1.78 (0.83-1.16); PROTIME(PATIENT) 20.8 SEC (12.0-15.0)
[2017-09-23] MEDS: HEPARIN 5,000 UNIT/0.5 ML SYR SC SCH (05:08)
[2017-09-23] MEDS: HYDROCODONE/APAP 5/325 TAB PO PRN ×2 (05:09→14:07)
[2017-09-23 05:11] LABS: ANION GAP 10 mEq/L (8-16); CALCIUM 8.7 mg/dL (8.5-10.4); CARBON DIOXIDE 28 mEq/l (22-31); CHLORIDE 102 mEq/L (97-110); CREATININE 1.6 mg/dL (0.7-1.3); GLOMERULAR FILTRATION RATE 43; GLUCOSE 106 mg/dL (70-100); POTASSIUM 5.1 mEq/L (3.5-5.2); SODIUM 140 mEq/L (134-144)
--- NOTE | 2017-09-23 07:46 | SOAPPROG ---
PAT Progress Note Assessment/Plan: POD#2: CABGx1 (BOWERS-LAD), MV repair with #28 Physio ring, Lance-Maze IV CAD - s/p CABGx1. ASA, statin for secondary prevention. Chest tubes to bulb suction. No beta-hernan d/t underlying JR. Mod-severe MR - s/p MV repair. Coumadin as per CM4. Long-standing persistent AF - s/p CM 4. Post-op rhythm predominately junctional. Atrial paced for improved hemodynamics. Thromboprophylaxis with Coumadin, INR goal 2-3, duration as per CM 4 protocol. Will hold tonight's dose as INR jumped over night. BB/CCB contraindicated d/t rhythm. Acute blood loss anemia - stable without the need for BP transfusion. RAVI - Cr 1.6 this morning likely pre-renal as BUN 45. Encourage fluids, will likely start IVF. DVT prophylaxis - Continue SCDs. Heparin SQ stopped as INR 1.8. Subjective: No complaints this morning. Pain well-controlled. Denies SOB. Objective: Vital Signs Temp Pulse Resp BP Pulse Ox 36.4 C 84 11 L 116/68 94 09/23/17 00:00 09/23/17 04:00 09/23/17 04:00 09/23/17 04:00 09/23/17 04:00 Laboratory Results 09/23/17 04:20 09/23/17 04:20 09/22/17 09/23/17 09/24/17 05:59 05:59 05:59 Intake Total 1000.7 2350 Output Total 1645 880 Balance -644.3 1470 PT 20.8 SEC (12.0-15.0) H 09/23/17 04:20 INR 1.78 (0.83-1.16) H 09/23/17 04:20 ICD10 Worksheet Patient Problems: Problems Problem Status Onset Acute blood loss anemia Acute S/P CABG x 1 Acute ~09/21/17 S/P Maze operation for atrial fibrillation Acute ~09/21/17 Status post mitral valve annuloplasty Acute ~09/21/17 BPH w urinary obs/LUTS Chronic FABRICIO (obstructive sleep apnea) Chronic CAD in [place] artery Acute Atrial fibrillation, persistent Chronic Chronic anticoagulation Chronic Myxomatous mitral valve regurgitation Chronic
[2017-09-23] MEDS ORDERED: NS 1,000 ML IV SCH (09:15)
[2017-09-23] MEDS: SENNOSIDES/DOCUSATE SODIUM TAB PO SCH ×2 (09:46→20:22)
[2017-09-23] MEDS: ATORVASTATIN CALCIUM 10 MG TAB PO SCH (09:46)
[2017-09-23] MEDS: ASPIRIN 81 MG CHEWABLE TAB PO SCH (09:46)
[2017-09-23] MEDS: OMEGA-3 FATTY ACIDS 1,000 MG CAP PO SCH (09:46)
[2017-09-23] MEDS: ASCORBIC ACID 500 MG TAB PO SCH (09:46)
[2017-09-23] MEDS: PANTOPRAZOLE SODIUM 40 MG TAB PO SCH (09:46)
[2017-09-23] MEDS: MUPIROCIN 2% 22 GM OINT NS SCH (09:47)
[2017-09-23] MEDS: traMADol 50 MG TAB PO PRN (11:18)
--- NOTE | 2017-09-23 14:57 | ASMTCMCOM ---
CM Note CM Note Notes: Pt cleared by PT/OT, will dc home w/support of when medically stable and then start cardiac rehab. CM available for any changes. DC Plan: Home w/, Cardiac Rehab Date Signed: 09/23/2017 02:57 PM Electronically Signed By:Sandra Meyer RN
[2017-09-23 18:44] LABS: ANION GAP 9 mEq/L (8-16); CALCIUM 8.9 mg/dL (8.5-10.4); CARBON DIOXIDE 27 mEq/l (22-31); CHLORIDE 102 mEq/L (97-110); CREATININE 1.3 mg/dL (0.7-1.3); GLOMERULAR FILTRATION RATE 55; GLUCOSE 109 mg/dL (70-100); POTASSIUM 5.1 mEq/L (3.5-5.2); SODIUM 138 mEq/L (134-144)
[2017-09-24 05:44] LABS: ANION GAP 9 mEq/L (8-16); CALCIUM 8.7 mg/dL (8.5-10.4); CARBON DIOXIDE 26 mEq/l (22-31); CHLORIDE 104 mEq/L (97-110); CREATININE 1.1 mg/dL (0.7-1.3); GLOMERULAR FILTRATION RATE > 60; GLUCOSE 104 mg/dL (70-100); POTASSIUM 5.1 mEq/L (3.5-5.2); SODIUM 139 mEq/L (134-144)
[2017-09-24 05:52] LABS: INR 2.08 (0.83-1.16); PROTIME(PATIENT) 23.4 SEC (12.0-15.0)
[2017-09-24] MEDS: HYDROCODONE/APAP 5/325 TAB PO PRN ×3 (06:11→20:28)
--- NOTE | 2017-09-24 08:08 | SOAPPROG ---
SOAP Progress Note Assessment/Plan: POD#3: CABGx1 (BOWERS-LAD), MV repair with #28 Physio ring, Lance-Maze IV CAD - s/p CABGx1. ASA, statin for secondary prevention. Chest tubes to bulb suction. No beta-hernan d/t underlying JR. Mod-severe MR - s/p MV repair. Coumadin as per CM4. Long-standing persistent AF - s/p CM 4. Post-op rhythm appears to be an accelerated JR although external pacer sensing p waves. Likely no need for PPM. Continue thromboprophylaxis with Coumadin, INR goal 2-3, duration as per CM 4 protocol. Will hold tonight's dose as INR jumped over night. BB/CCB contraindicated d/t rhythm. Acute blood loss anemia - stable without the need for BP transfusion. RAVI - Resolved. DVT prophylaxis - Continue SCDs. Heparin SQ stopped as INR therapeutic. Subjective: Denies pain/SOB. Objective: Vital Signs Temp Pulse Resp BP Pulse Ox 36.8 C 67 14 121/76 H 98 09/23/17 20:00 09/24/17 04:00 09/24/17 04:00 09/24/17 04:00 09/24/17 04:00 Laboratory Results 09/23/17 04:20 09/24/17 05:15 09/23/17 09/24/17 09/25/17 05:59 05:59 05:59 Intake Total 2350 2500 Output Total 880 880 Balance 1470 1620 PT 23.4 SEC (12.0-15.0) H 09/24/17 05:15 INR 2.08 (0.83-1.16) H 09/24/17 05:15 Physical Exam - Physical Exam General Appearance: WD/WN, alert, no apparent distress EENT: No scleral icterus (R), No scleral icterus (L) Neck: normal inspection Respiratory: No respiratory distress Cardiac/Chest: regular rate, rhythm Abdomen: non-tender, soft, No distended Skin: normal color, warm/dry Extremities: No pedal edema Neuro/Psych: no motor/sensory deficits, alert, normal mood/affect, oriented x 3 ICD10 Worksheet Patient Problems: Problems Problem Status Onset Acute blood loss anemia Acute S/P CABG x 1 Acute ~09/21/17 S/P Maze operation for atrial fibrillation Acute ~09/21/17 Status post mitral valve annuloplasty Acute ~09/21/17 BPH w urinary obs/LUTS Chronic FABRICIO (obstructive sleep apnea) Chronic CAD in [place] artery Acute Atrial fibrillation, persistent Chronic Chronic anticoagulation Chronic Myxomatous mitral valve regurgitation Chronic
[2017-09-24] MEDS: OMEGA-3 FATTY ACIDS 1,000 MG CAP PO SCH (08:31)
[2017-09-24] MEDS: ATORVASTATIN CALCIUM 10 MG TAB PO SCH (08:32)
[2017-09-24] MEDS: PANTOPRAZOLE SODIUM 40 MG TAB PO SCH (08:32)
[2017-09-24] MEDS: ASCORBIC ACID 500 MG TAB PO SCH (08:32)
[2017-09-24] MEDS: traMADol 50 MG TAB PO PRN (08:33)
[2017-09-24] MEDS: ASPIRIN 81 MG CHEWABLE TAB PO SCH (08:33)
[2017-09-24] MEDS: SENNOSIDES/DOCUSATE SODIUM TAB PO SCH ×2 (08:33→20:33)
[2017-09-24 12:41] LABS: POTASSIUM 4.9 mEq/L (3.5-5.2)
[2017-09-24] MEDS ORDERED: FUROSEMIDE 40 MG/4 ML VIAL IVP ONE (15:56)
[2017-09-25] MEDS: HYDROCODONE/APAP 5/325 TAB PO PRN (02:58)
[2017-09-25] MEDS: FUROSEMIDE 40 MG/4 ML VIAL IVP SCH ×3 (06:05→15:30)
[2017-09-25 06:29] LABS: INR 1.38 (0.83-1.16); PROTIME(PATIENT) 17.1 SEC (12.0-15.0)
[2017-09-25 06:36] LABS: ANION GAP 9 mEq/L (8-16); CALCIUM 8.9 mg/dL (8.5-10.4); CARBON DIOXIDE 30 mEq/l (22-31); CHLORIDE 100 mEq/L (97-110); GLOMERULAR FILTRATION RATE > 60; GLUCOSE 93 mg/dL (70-100); POTASSIUM 4.2 mEq/L (3.5-5.2); SODIUM 139 mEq/L (134-144)
--- NOTE | 2017-09-25 07:02 | SOAPPROG ---
SOAP Progress Note Assessment/Plan: POD#4: CABGx1 (BOWERS-LAD), MV repair with #28 Physio ring, Lance-Maze IV CAD - s/p CABGx1. ASA, statin, CCB for secondary prevention. Mod-severe MR - s/p MV repair. Coumadin as per CM4. Long-standing persistent AF - s/p CM 4. Predominately SR now. Continue thromboprophylaxis with Coumadin, INR goal 2-3, duration as per CM 4 protocol. Home Cardizem restarted for afib prophylaxis. Acute blood loss anemia - stable without the need for BP transfusion. RAVI - Resolved. DVT prophylaxis - Continue SCDs. Heparin SQ stopped as on Coumadin. Subjective: Denies pain/SOB. Objective: Vital Signs Temp Pulse Resp BP Pulse Ox 36.8 C 66 16 130/78 H 97 09/25/17 04:00 09/25/17 04:00 09/25/17 04:00 09/25/17 04:00 09/25/17 04:00 Laboratory Results 09/23/17 04:20 09/25/17 06:05 09/24/17 09/25/17 09/26/17 05:59 05:59 05:59 Intake Total 2500 1470 Output Total 880 1070 Balance 1620 400 PT 17.1 SEC (12.0-15.0) H 09/25/17 06:05 INR 1.38 (0.83-1.16) H 09/25/17 06:05 Physical Exam - Physical Exam General Appearance: WD/WN, alert, no apparent distress EENT: No scleral icterus (R), No scleral icterus (L) Neck: normal inspection Respiratory: No respiratory distress Cardiac/Chest: regular rate, rhythm Abdomen: non-tender, soft, No distended Skin: normal color, warm/dry Extremities: pedal edema Neuro/Psych: no motor/sensory deficits, alert, normal mood/affect, oriented x 3 ICD10 Worksheet Patient Problems: Problems Problem Status Onset Acute blood loss anemia Acute S/P CABG x 1 Acute ~09/21/17 S/P Maze operation for atrial fibrillation Acute ~09/21/17 Status post mitral valve annuloplasty Acute ~09/21/17 BPH w urinary obs/LUTS Chronic FABRICIO (obstructive sleep apnea) Chronic CAD in [place] artery Acute Atrial fibrillation, persistent Chronic Chronic anticoagulation Chronic Myxomatous mitral valve regurgitation Chronic
[2017-09-25] MEDS: ATORVASTATIN CALCIUM 10 MG TAB PO SCH (08:23)
[2017-09-25] MEDS: OMEGA-3 FATTY ACIDS 1,000 MG CAP PO SCH (08:24)
[2017-09-25] MEDS: DILTIAZEM CD 180 MG CAP PO SCH (08:24)
[2017-09-25] MEDS: SENNOSIDES/DOCUSATE SODIUM TAB PO SCH ×2 (08:24→19:52)
[2017-09-25] MEDS: ASPIRIN 81 MG CHEWABLE TAB PO SCH (08:24)
[2017-09-25] MEDS: ASCORBIC ACID 500 MG TAB PO SCH (08:24)
[2017-09-25] MEDS: PANTOPRAZOLE SODIUM 40 MG TAB PO SCH (08:24)
[2017-09-25] MEDS ORDERED: NON-FORMULARY NEW DRUG (Diltiazem Hcl [Cartia Xt 180mg] 180 MG) PO SCH (09:00)
[2017-09-25] MEDS ORDERED: FUROSEMIDE 40 MG TAB PO SCH (09:00)
[2017-09-25 12:42] LABS: POTASSIUM 3.7 mEq/L (3.5-5.2)
[2017-09-25] MEDS: traMADol 50 MG TAB PO PRN ×2 (12:46→22:14)
[2017-09-25] MEDS ORDERED: POTASSIUM CL 20 MEQ TAB PO ONE (14:27)
[2017-09-25] MEDS ORDERED: WARFARIN SODIUM 5 MG TAB PO ONE (16:00)
[2017-09-25] MEDS ORDERED: METOLAZONE 5 MG TAB PO SCH (16:15)
[2017-09-26 04:27] LABS: INR 1.43 (0.83-1.16); PROTIME(PATIENT) 17.6 SEC (12.0-15.0)
[2017-09-26 04:36] LABS: POTASSIUM 3.5 mEq/L (3.5-5.2)
--- NOTE | 2017-09-26 08:49 | SOAPPROG ---
SOAP Progress Note Assessment/Plan: Assessment: POD#5 CABGx1 (BWOERS-LAD), MV repair with #28 Physio ring, Lance-Maze IV CAD - s/p CABGx1. ASA, statin, CCB for secondary prevention. Mod-severe MR - s/p MV repair. Coumadin as per CM4. Long-standing persistent AF - s/p CM 4. Predominately SR now. Continue thromboprophylaxis with Coumadin, INR goal 2-3, duration as per CM 4 protocol. Home Cardizem restarted for afib prophylaxis. Acute blood loss anemia - Stable without the need for BP transfusion. VTE prophylaxis with Coumadin. RAVI - Resolved. Plan: Relax diuresis. [employer] Coumadin to 7.5 mg today. Dispo - Consider home this afternoon. 09/26/17 08:47 Subjective: Doing ok. Tolerating light activity with relative ease. Feels much less swollen. Eager for home. Objective: Vital Signs Temp Pulse Resp BP Pulse Ox 36.7 C 85 20 118/68 97 09/26/17 08:00 09/26/17 08:00 09/26/17 08:00 09/26/17 08:00 09/26/17 08:00 Laboratory Results 09/23/17 04:20 09/26/17 03:40 09/25/17 09/26/17 09/27/17 05:59 05:59 05:59 Intake Total 1470 1900 Output Total 1070 1950 Balance 400 -50 PT 17.6 SEC (12.0-15.0) H 09/26/17 03:40 INR 1.43 (0.83-1.16) H 09/26/17 03:40 Holding SR. Excellent diuresis. No hypotension. Now within 2 kg admit wt. INR slow to rise. Physical Exam - Physical Exam General Appearance: alert, no apparent distress Respiratory: lungs clear Cardiac/Chest: regular rate, rhythm, other (Sternum grossly stable. Sternotomy and CT sites CDI) Abdomen: non-tender, soft Skin: warm/dry Extremities: swelling (1+ dependent) ICD10 Worksheet Patient Problems: Problems Problem Status Onset Acute blood loss anemia Acute S/P CABG x 1 Acute ~09/21/17 S/P Maze operation for atrial fibrillation Acute ~09/21/17 Status post mitral valve annuloplasty Acute ~09/21/17 BPH w urinary obs/LUTS Chronic FABRICIO (obstructive sleep apnea) Chronic CAD in [place] artery Acute Atrial fibrillation, persistent Chronic Chronic anticoagulation Chronic Myxomatous mitral valve regurgitation Chronic
[2017-09-26] MEDS ORDERED: SENNOSIDES/DOCUSATE SODIUM TAB PO PRN (09:00)
[2017-09-26] MEDS ORDERED: POTASSIUM CL 20 MEQ TAB PO ONE ×3 (09:00→12:00)
[2017-09-26] MEDS: FUROSEMIDE 40 MG/4 ML VIAL IVP SCH (09:10)
[2017-09-26] MEDS: OMEGA-3 FATTY ACIDS 1,000 MG CAP PO SCH (09:10)
[2017-09-26] MEDS: PANTOPRAZOLE SODIUM 40 MG TAB PO SCH (09:11)
[2017-09-26] MEDS: DILTIAZEM CD 180 MG CAP PO SCH (09:11)
[2017-09-26] MEDS: ASPIRIN 81 MG CHEWABLE TAB PO SCH (09:11)
[2017-09-26] MEDS: ASCORBIC ACID 500 MG TAB PO SCH (09:11)
[2017-09-26] MEDS: ATORVASTATIN CALCIUM 10 MG TAB PO SCH (09:11)
--- NOTE | 2017-09-26 11:26 | PDHOMEO2F ---
Home Oxygen Face to Face Home Orders: I certify that a physician or a nurse practitioner or physician's mail handler assistant has had a [id number] encounter with this patient on the date of this order due to the diagnosis listed, which relates to the primary reason the patient requires home oxygen. Alternative treatments have been tried, or considered, and deemed ineffective. It is anticipated that supplemental oxygen will result in improvement with treatment. Home oxygen qualifying diagnosis: FABRICIO Home oxygen secondary diagnosis: CAD SpO2 on room air (%): 84 Frequency of home oxygen needed: during sleep Home oxygen liters per minute: 2 Home oxygen delivery device: nasal cannula Concentrator: Yes E-tanks for mobility and back up: No I certify that, based on these findings, the home oxygen is medically necessary for this patient for the following length of time. Length of time home oxygen needed: 99 years (indefinite)
[2017-09-26 12:28] VITALS: BP 123/73; PULSE 84; RESP 16; TEMP 98.2; O2SAT 90
--- NOTE | 2017-09-26 12:32 | ASMTCMCOM ---
CM Note CM Note Notes: Patient to dc to home today with home oxygen. No other needs identified at present, CM available should needs arise. Date Signed: 09/26/2017 12:32 PM Electronically Signed By:Yoly Rivas RN
[2017-09-26] MEDS ORDERED: WARFARIN SODIUM 7.5 MG TAB PO ONE (16:00)
--- NOTE | 2017-09-26 17:41 | PDDCSUM ---
Discharge Summary Discharge Summary: DATE OF ADMISSION: 09/21/17 DATE OF DISCHARGE: 09/26/17 DISPOSITION: Home, self-care PRINCIPAL ADMISSION DIAGNOSES: 1. Longstanding persistent atrial fibrillation 2. Severe myxomatous mitral regurgitation 3. Single vessel coronary artery disease PRINCIPAL DISCHARGE DIAGNOSES: 1. Status post Lance Maze IV atrial fibrillation ablation procedure with AtriClip ligation of the left atrial appendage 2. Status post mitral valve annuloplasty 3. Status post coronary artery bypass grafting x 1 4. Acute expected blood loss anemia HISTORY OF PRESENT ILLNESS: 66 yo male with lifestyle limiting increase in frequency of LPAF assoc with progressive MR into severe range and incidental high grade LAD stenosis, admitted for elective CoxMaze IV, MV repair/replace and CABG x 1. No LVSD, significant LAE, or overt CHF. 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 Mitral valve annuloplasty with a 28 mm [place] Physio ring. Lance-Maze IV procedure utilizing bipolar radiofrequency, cryothermy and an AtriClip. 09/22 (Kai): Transthoracic echocardiogram: LVEF 60-65%, no LA dilatation, no MR , mild TR. ABBREVIATED HOSPITAL COURSE BY ACTIVE PROBLEM LIST: 1. Long-standing persistent AF - Predominant post CM4 rhythm sinus. Rate control with CCB resumed. Thromboprophylaxis switched to Coumadin, INR goal 2-3 , duration as per CM4 protocol. 2. Severe MR - Annular dilatation amenable to ring annuloplasty. Antithrombotic prophylaxis as per rhythm. 3. Incidental CAD with preserved LV systolic fx - Revascularized with an arterial graft. Early postop renal insufficiency attributable to NSAID and relative hypotension resolved with overdrive AV pacing and careful fluid management. Secondary prevention with ASA, statin, and CCB. 4. Acute expected blood loss anemia - Stable. No transfusions required. H/H > 10 /30 maintained. DISCHARGE CLINICAL INFORMATION: Sternum grossly stable. Sternotomy CDI, sutured, +Dermabond. HR 70s-80s. SBP 110s-120s. SpO2 84% RA sleeping correcting to 94% on 2 Lpm O2. Wt 2.2kg above admission at 79.4 kilos. Hgb 12.1, HCT 35.3, Plt 119, Na 139, K 3.5, Cr 1.0 Coumadin flowsheet: Date INR mg 09/22 1.28 5 09/23 1.78 0 09/24 2.08 0 09/25 1.38 5 09/26 1.43 7.5 DISCHARGE MEDICATIONS: As on admission with the following adjustments: 1. Hold Eliquis. NEW prescriptions: 1. ASA 81 mg daily. Hold for INR > 3. 2. Lasix 40 mg daily. 3. KlorCon 20 meq daily with lasix. 4. Coumadin 5 mg daily or as directed by INR/anticoagulation clinic. 6. [place] 5/325 one-half to two tabs q 4-6 hrs prn incisional discomfort. 7. O2 @ 2 Lpm before bed. FOLLOW UP APPOINTMENTS: 1. CV surgery: with Dr Sosa at [facility] on 09/29 at 0845 and on 12/17 at . 2. Cardiology: with Dr Reich at [facility] within 4-6 weeks. Appointment to be established during surgical visit. 3. [facility] anticoagulation clinic: at [facility] on 09/29 at 0800. FOLLOW UP TESTING: INR on 09/29. CXR prior to surgical appointment on 10/04.
[2017-09-27] MEDS ORDERED: POTASSIUM CL 20 MEQ TAB PO SCH (09:00)
[2017-09-27] MEDS ORDERED: FUROSEMIDE 40 MG TAB PO SCH (09:00)
--- NOTE | 2017-09-27 09:10 | ASDISCHSUM ---
Discharge Information Plan Status:Home with No Needs Medically Cleared to Leave:09/25/2017 Discharge Date:09/26/2017 05:30 PM CM D/C Disposition: ADT D/C Disposition:Home, Routine, Self-Care Projected Discharge Date:09/26/2017 12:00 AM Transportation at D/C: Discharge Delay Reason: Follow-Up Date:09/26/2017 12:00 AM Discharge Slot: Final Diagnosis: Placement Information Patient Contact Information Contact Name:JEANNIE Relationship: Address:[address] City:[place] Alternate Phone: State/Zip Code:[place] [address] Email: Financial Information Financial Class: Primary Plan Desc:MEDICARE INPATIENT Primary Plan Number:[id number] [facility] Secondary Plan Number:[id number] Assessment Information [facility] CM Progress Note CM Note CM Note Notes: Patient is POD #1 CABG, MVR, and Lance Maze with Dr Sosa. He is currently stable and out of bed in the ICU. PT/OT evals have been ordered. Patient lives independently with his . Discharge needs TBD pending therapy evals and clinical progress. CM will follow. Current CM Discharge plan: TBD Date Signed: 09/22/2017 09:54 AM Electronically Signed By:Shy Segovia RN [facility] CM Progress Note CM Note CM Note Notes: Pt cleared by PT/OT, will dc home w/support of when medically stable and then start cardiac rehab. CM available for any changes. DC Plan: Home w/, Cardiac Rehab Date Signed: 09/23/2017 02:57 PM Electronically Signed By:Sandra Meyer RN [facility] CM Progress Note CM Note CM Note Notes: Patient to dc to home today with home oxygen. No other needs identified at present, CM available should needs arise. Date Signed: 09/26/2017 12:32 PM Electronically Signed By:Yoly Rivas RN Intervention Information
[2017-09-27] MEDS ORDERED: WARFARIN SODIUM 5 MG TAB PO SCH (16:00)
== END 2017-09-26 17:30 | disposition home or self-care (01) | DRG 220 ==
LOC: FCATH 05:51 → F2N 10:36 → F2W 09-24 16:55
PROVIDERS: ADMIT Thoracic Surgery (Cardiothoracic Vascular Surgery); ATTEND Thoracic Surgery (Cardiothoracic Vascular Surgery)
DX: I34.0 Nonrheumatic mitral (valve) insufficiency (principal); I48.1 Persistent atrial fibrillation; D62 Acute posthemorrhagic anemia; I25.10 Atherosclerotic heart disease of native coronary artery without angina pectoris; E78.5 Hyperlipidemia, unspecified; G47.33 Obstructive sleep apnea (adult) (pediatric); E80.4 Gilbert syndrome; Z79.01 Long term (current) use of anticoagulants; Z87.891 Personal history of nicotine dependence
CPT/HCPCS: 82947-QW; 97110-GP; 97116-GP; 97140-GP; 97162-GP; 97165-GO; 97530-GP; 97535-GO; G8978-GP-CJ; G8979-GP-CI; G8980-GP-CI; G8987-GO-CK; G8988-GO-CI; G8989-GO-CI; J0153; J0171; J0282; J0461; J0690; J1100; J1265; J1644; J1815; J1885; J1940; J2001; J2150; J2250; J2260; J2370; J2405; J2440; J2704; J2720; J2930; J3010; J7060; P9041; Q9967

== ENCOUNTER → 2017-10-04 | Outpatient (CLI) | payer OTHER | LOC: FIMAGING 08:18 | PROVIDERS: ATTEND Thoracic Surgery (Cardiothoracic Vascular Surgery) | DX: I51.7 Cardiomegaly (principal); R91.8 Other nonspecific abnormal finding of lung field; Z86.79 Personal history of other diseases of the circulatory system; Z95.4 Presence of other heart-valve replacement; Z95.1 Presence of aortocoronary bypass graft; Z98.890 Other specified postprocedural states ==

== ENCOUNTER → 2017-10-10 | Outpatient (CLI) | payer OTHER | LOC: FIMAGING 10:47 | PROVIDERS: ATTEND Thoracic Surgery (Cardiothoracic Vascular Surgery) | DX: Z48.812 Encounter for surgical aftercare following surgery on the circulatory system (principal); Z98.890 Other specified postprocedural states; I51.7 Cardiomegaly; J90 Pleural effusion, not elsewhere classified ==

== ENCOUNTER 2017-10-20 15:17 | Emergency (ER) | payer OTHER ==
[2017-10-20 15:22] VITALS: TEMP 97.7
--- NOTE | 2017-10-20 17:16 | EDPHY ---
H & P Time Seen by Provider: 10/20/17 15:47 HPI/ROS: HPI Transient vision changes. 67-year-old male by private vehicle with his . This patient has a history of mitral valve regurgitation and recent surgery for mitral valve replacement. He reports that he was on a routine walk this morning at 12:00 p.m.. He reports that he had a transient episode of double vision which she states lasted approximately 30 sec and then completely resolved. She denies any other associated signs or symptoms. He went to his cardiac rehab appointment. He was then seen by a java developer architect named Dr. Osborne after his rehabilitation appointment. He is on Coumadin for atrial fibrillation and mitral valve replacement. His recent INR is 1.5. His Coumadin dosing has been adjusted by his java developer architect. He explained to Dr. Osborne his transient double vision in passing and Dr. Osborne called me to have him evaluated for a possible TIA. He has no complaints at this time. ROS: Constitutional: No fever, no chills. No weakness. Eyes: No discharge. As above. Respiratory: No cough. No shortness of breath. Cardiac: No chest pain, no palpitations. Gastrointestinal: No abdominal pain, no vomiting, no diarrhea. Musculoskeletal: No back pain. No neck pain. No myalgias or arthralgias. Skin: No rashes. Neurological: No headache. No focal weakness or altered sensation. Past medical history: As above. Social history: Here with his . Nonsmoker. No alcohol. Physical Exam: General Appearance: Alert, no distress. This patient is responding to questions appropriately and in full sentences. This patient appears well- hydrated and well-nourished. Eyes: Pupils equal and round no pallor or injection. No lid edema, erythema or injection. No photophobia. No nystagmus. ENT, Mouth: Mucous membranes are moist. The pharyngeal tissues are unremarkable. No edema or swelling. No asymmetry suggestive of abscess. No erythema or exudates. Respiratory: There are no retractions, lungs are clear to auscultation with good air movement bilaterally. Cardiovascular: Regular rate and rhythm. No murmur. Gastrointestinal: Abdomen is soft and nontender, no masses, bowel sounds normal. No focal tenderness at McBurney's point. No Knight sign. Neurological: Motor sensory function is grossly intact. Cranial nerves are normal. Gait is normal. Skin: Warm and dry, no rashes. Musculoskeletal: Neck is supple and nontender. Extremities are symmetrical. All joints range without pain or impingement. Psychiatric: No agitation. No depression. Database: EKG: EKG time is 5:25 p.m.; EKG shows a narrow complex normal sinus rhythm with a ventricular rate of 68. PVCs noted. The FL, QRS, QT intervals are within normal limits. There are no ST-T wave changes indicative of ischemic or injury pattern. No evidence of right heart strain. Interpreted by me. Imaging: MRI of the brain without contrast: No acute pathology. Age-related changes only. Results were discussed with staff radiologist Dr. Tyron Raed. Procedures: Emergency department course: Vital signs reviewed. Afebrile. Moderate hypertension otherwise normal. His neurologic exam is nonfocal. I discussed imaging with them. He endorses getting an MRI. 5:20 p.m. I spoke to the patient's cardiothoracic surgeon Dr. Balderrama. No contraindications to getting an MRI. He will be sent for this study shortly. 6:20 p.m., patient re-evaluated. Repeat neurologic Assessment is nonfocal. Results of MRI and EKG discussed with him and his . They feel comfortable going home. I feel he is safe for discharge. He is taking his Coumadin as prescribed at the increased dosing. He will follow up with his java developer architect on Monday. Return to emergency department precautions reviewed with him. All of his questions were answered. He was discharged in good condition. Differential Diagnosis: The differential diagnosis on this patient includes but is not limited to transient visual disturbance, TIA. CVA unlikely. This represents a partial list of diagnoses considered. These considerations are based on history, physical exam, past history, reassessment and diagnostic testing. Smoking Status: Former smoker Constitutional: Initial Vital Signs Temperature (C) 36.5 C 10/20/17 15:20 Heart Rate 77 10/20/17 15:20 Respiratory Rate 16 10/20/17 15:20 Blood Pressure 150/85 H 10/20/17 15:20 O2 Sat (%) 96 10/20/17 15:20 O2 Delivery Mode Room Air Allergies/Adverse Reactions: No Known Allergies Allergy (Verified 10/20/17 15:19) Home Medications: Medication Instructions Recorded Atorvastatin Calcium [Lipitor 10 10 mg PO DAILY 05/02/17 mg (*)] Diltiazem HCl [[place]ia XT 180mg] 180 mg PO DAILY 05/24/17 Ascorbic Acid [Vitamin C 500 mg 500 mg PO DAILY 09/13/17 (*)] [place]-3 Fatty Acids [Fish Oil 1000 1,000 mg PO DAILY 09/13/17 mg (*)] Acetaminophen [Tylenol 325mg (*)] 325 - 650 mg PO Q4HRS PRN tab 09/26/17 Aspirin [Aspirin 81mg (*)] 81 mg PO DAILY tab.chew 09/26/17 Warfarin Sodium [Coumadin 5MG (*)] 5 mg PO DAILY AT 4PM #90 tab 09/26/17 Medical Decision Making - Diagnostics Imaging Results: Imaging Impressions Brain MRI 10/20/17 15:48 Impression: Mild periventricular and deep hemispheric white matter change, which is nonspecific and can be seen with small vessel ischemic disease or gliosis from migraine or trauma. No evidence for acute infarct. Results called and discussed with Louis Urena M.D., on October 20, 2017 at 1809. Departure - Departure Disposition: Home, Routine, Self-Care Clinical Impression: Transient visual disturbance Condition: Good Instructions: Diplopia (ED) Additional Instructions: Read and follow provided instructions. Follow-up with your primary care physician or java developer architect on Monday for re- evaluation. Take Coumadin at adjusted dosing as prescribed. Return to the emergency department for return of visual disturbances, loss of sensation or weakness in her extremities, confusion or other serious concerns. Referrals: Bijan Cid MD [Primary Care Provider] - As per Instructions
--- NOTE | 2017-10-20 17:27 | CPEKG ---
Heart Rate: 68 RR Interval: 882 P-R Interval: 140 QRSD Interval: 86 QT Interval: 426 QTC Interval: 454 P [place]: 0 QRS [place]: -52 T Wave [place]: 88 EKG Severity - ABNORMAL ECG - EKG Impression: SINUS RHYTHM EKG Impression: VENTRICULAR PREMATURE COMPLEX EKG Impression: INFERIOR INFARCT, AGE INDETERMINATE Electronically Signed By: Louis Urena 20-Oct-2017 21:26:59
[2017-10-20 18:37] VITALS: BP 153/89; PULSE 74; RESP 18; O2SAT 97
== END 2017-10-20 18:37 | disposition home or self-care (01) ==
DX: H53.8 Other visual disturbances (principal); Z79.01 Long term (current) use of anticoagulants; Z79.82 Long term (current) use of aspirin; Z87.891 Personal history of nicotine dependence

== ENCOUNTER 2017-10-23 16:10 | Emergency (ER) | payer OTHER ==
[2017-10-23 16:18] VITALS: BP 157/87; PULSE 77; RESP 16; TEMP 98.4; O2SAT 96
--- NOTE | 2017-10-23 17:07 | EDPHY ---
H & P Stated Complaint: Transient,brief episode diploplia/seen here Fri for same;pt states neg w/u Time Seen by Provider: 10/23/17 17:06 - Personal History Tetanus Vaccine Date: <10 years - Medical/Surgical History Hx Diabetes: No Hx Cardiac Disease: Yes Other PMH: a fib. mitral valve repair - Social History Smoking Status: Former smoker Constitutional: Initial Vital Signs Temperature (C) 36.9 C 10/23/17 16:10 Heart Rate 77 10/23/17 16:10 Respiratory Rate 16 10/23/17 16:10 Blood Pressure 157/87 H 10/23/17 16:10 O2 Sat (%) 96 10/23/17 16:10 O2 Delivery Mode Room Air Allergies/Adverse Reactions: No Known Allergies Allergy (Verified 10/23/17 16:15) Home Medications: Medication Instructions Recorded Atorvastatin Calcium [Lipitor 10 10 mg PO DAILY 01/31/17 mg (*)] Diltiazem HCl [Cartia XT 180mg] 180 mg PO DAILY 05/24/17 Ascorbic Acid [Vitamin C 500 mg 500 mg PO DAILY 09/13/17 (*)] Novelty-3 Fatty Acids [Fish Oil 1000 1,000 mg PO DAILY 09/13/17 mg (*)] Acetaminophen [Tylenol 325mg (*)] 325 - 650 mg PO Q4HRS PRN tab 09/26/17 Aspirin [Aspirin 81mg (*)] 81 mg PO DAILY tab.chew 09/26/17 Warfarin Sodium [Coumadin 5MG (*)] 5 mg PO DAILY AT 4PM #90 tab 09/26/17 Medical Decision Making ED Course/Re-evaluation: CHIEF COMPLAINT: Double vision HISTORY OF PRESENT ILLNESS: The patient is anticoagulated 67 y/o male who had open heart surgery for valve repair and BOWERS 4 weeks ago and returns to the ED for the second time in 3 days for evaluation of double vision. 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 He had a negative non-contrast brain MRI at that time. Since that time he has been doing well. He worked out at cardiac rehab today and then met a friend at a restaurant. While waiting there he developed the exact same symptoms that resolved after about 45 seconds. He had no associated headache, weakness, paresthesias, confusion, or aphasia. He denies any head or eye trauma or recent illness. He has never experienced these symptoms prior to 3 days ago and denies any current symptoms. REVIEW OF SYSTEMS: A 10 point review of systems was performed and is negative with the exception of the elements mentioned in the history of present illness. PHYSICAL EXAM: HR, BP, O2 Sat, RR. Temp noted General Appearance: Alert, well hydrated, appropriate, and non-toxic appearing. Head: Atraumatic without scalp tenderness or obvious injury Eyes: Pupils equal, round, reactive to light and accommodation, EOMI, no trauma , no injection. Mild medial deviation of right eye when looking upwards and center, otherwise normal tracking. Ears: Clear bilaterally, no perforation, normal landmarks Nose: Atraumatic, no rhinorrhea, clear. Neck: Supple Respiratory: No distress Cardiovascular: Good capillary refill all extremities. Neurological: Alert, appropriate, and interactive. The patient has non-focal cranial nerves, motor, sensory, and cerebellar exam. Skin: No rashes, good turgor, no nodules on palpation. Past medical history: Atrial fibrillation, mitral valve regurgitation Past surgical history: Mitral valve repair - Coumadin, BOWERS, ablation Family history: Noncontributory Social history: at bedside. Nonsmoker. No alcohol use. Prior medical records reviewed including ED visit and MRI 10/20/17 for same symptoms. DIFFERENTIAL DIAGNOSIS: The differential diagnosis for the patient's symptoms included but was not limited to 6th nerve palsy, peripheral causes, central causes including CVA, TIA, electrolyte abnormalities and dehydration, cardiogenic causes, atypical causes like migraine syndrome. MEDICAL DECISION MAKING: This is a 67 y/o male with recent history of open heart surgery who presents for evaluation of a second episode of transient diplopia today. His double vision extinguishes when closing either eye, which decreases concern for a lens dislocation or other intrinsic eye issue. He has mild medial deviation of his right eye compared to left when looking upward and inward. Brain MRI 3 days ago for the same issues was negative for acute process. I think symptoms likely represent an extraocular muscle issue like a 6th nerve palsy. He is currently asymptomatic and I do not have a strong indication for further imaging. His neuro exam is nonfocal. The transient short-lived nature is much less concerning for tumor or other central cause. Recommend ground nuclear weapons assembly officer follow up for further evaluation. He is comfortable with this plan. Return precautions discussed. Departure - Departure Disposition: Home, Routine, Self-Care Clinical Impression: Diplopia Condition: Good Instructions: Diplopia (ED) Additional Instructions: Follow up with your ground nuclear weapons assembly officer or Dr. Morris in the next couple days. Return to the ED for worsening of condition including headache, fainting, confusion, weakness, numbness. Referrals: Bijan Cid MD [Primary Care Provider] - As per Instructions Getachew Morris MD [Medical Doctor] - As per Instructions Report Scribed for: Bladimir Walker Report Scribed by: Fatmata Noriega Date of Report: 10/23/17 Time of Report: 17:18
== END 2017-10-23 17:15 | disposition home or self-care (01) ==
DX: H53.2 Diplopia (principal); Z87.891 Personal history of nicotine dependence

== ENCOUNTER → 2017-10-25 | Outpatient (CLI) | payer OTHER | LOC: FIMAGING 14:19 | PROVIDERS: ATTEND Thoracic Surgery (Cardiothoracic Vascular Surgery) | DX: J90 Pleural effusion, not elsewhere classified (principal); Z95.2 Presence of prosthetic heart valve ==

== ENCOUNTER → 2017-12-20 | Outpatient (CLI) | payer OTHER | LOC: BHFA 14:45 | PROVIDERS: ATTEND Internal Medicine Cardiovascular Disease | DX: I50.9 Heart failure, unspecified (principal); I48.91 Unspecified atrial fibrillation; Z98.890 Other specified postprocedural states ==

== ENCOUNTER → 2018-04-25 | Outpatient (CLI) | payer OTHER | LOC: BHFA 15:45 | PROVIDERS: ATTEND Internal Medicine Cardiovascular Disease | DX: I48.91 Unspecified atrial fibrillation (principal); I34.0 Nonrheumatic mitral (valve) insufficiency ==

== ENCOUNTER → 2018-08-09 | Outpatient (CLI) | payer OTHER | LOC: BHFA 15:45 | PROVIDERS: ATTEND Internal Medicine Cardiovascular Disease | DX: R55 Syncope and collapse (principal) ==

== ENCOUNTER → 2019-02-19 | Outpatient (CLI) | payer OTHER | LOC: FIMAGING 07:17 | PROVIDERS: ATTEND Internal Medicine | DX: K80.20 Calculus of gallbladder without cholecystitis without obstruction (principal); K76.89 Other specified diseases of liver; R16.0 Hepatomegaly, not elsewhere classified ==